=== PATIENT | male | born 1970 | race Caucasian/White ===

== ENCOUNTER 2019-05-31 07:33 | Emergency (ER) | payer OTHER, SELFPAY ==
--- NOTE | ~2019-05-31 | XR_ITS ---
EXAMINATION: XR chest 2V DATE: 05/31/2019 08:07 INDICATION: Cough and fever TECHNIQUE: PA and lateral views of the chest are obtained. COMPARISON: 03/05/2019, 12/22/2016 FINDINGS: The lungs are free of acute opacities. There is no pleural effusion or pneumothorax. The ca rdiomediastinal silhouette is normal. There is mild thoracic spondylosis. IMPRESSION: 1. No acute cardiopulmonary abnormality. Reviewed, dictated and finalized at location A.
[2019-05-31 07:41] VITALS: BP 128/84; PULSE 65; RESP 20; TEMP 36.8; O2SAT 99
--- NOTE | 2019-05-31 08:25 | ED.URI ---
HPI - URI/Sore Throat General Chief Complaint: Upper Respiratory Infection Stated Complaint: FEVER,COUGH BODY ACHES Time Seen by Provider: 05/31/19 07:42 Source: patient Mode of arrival: ambulatory Limitations: no limitations History of Present Illness HPI Narrative: 48 yo male who presents for evaluation of fever, cough x 2 days. Patient reports he started not feeling well 2 days ago. He reports runny nose, congestion, dry cough , fever and mild sob. Patient's states 1 week prior she was sick will similar symptoms and she states her hairdresser was diagnosed with flu prior to her sickness. Patient denies travelling out of the [facility]. He states he has just been in [place]. He denies contact with individuals who have traveled out of the country in the last 21 days. He denies contact with individual with known rivera or risk. MD elicited complaint: fever, cough, sore throat, rhinorrhea and nasal congestion Onset (ago): day(s) (2) Consistency: constant Treatments prior to arrival: ibuprofen (at 3 am) Related Data Allergies Allergy/AdvReac Type Severity Reaction Status Date / Time celecoxib Allergy Unknown Urticaria Verified 07/19/17 10:30 Review of Systems Review of Systems: All systems reviewed & are unremarkable except as noted in HPI and below Constitutional: Constitutional: Reports chills and Reports fever(s) ENT: Reports nasal congestion and Reports sore throat Cardiovascular: Cardiovascular: Denies chest pain Respiratory: Respiratory: Reports cough and Reports dyspnea Gastrointestinal: Gastrointestinal: Denies abdominal pain, Denies diarrhea, Denies nausea and Denies vomiting PMF Past Medical History Medical History Bilateral carpal tunnel syndrome Cubital tunnel syndrome, bilateral GERD (gastroesophageal reflux disease) Pneumonia Sleep apnea Umbilical hernia Surgical History Surgical History H/O umbilical hernia repair 2011 H/O vasectomy 2006 History of bilateral carpal tunnel release 2009, 2011 Hx of tonsillectomy As a child S/P cubital tunnel release Bilateral, 2012 and 2013 Status post trigger finger release Bilateral, 2013 and 2014 Social History Social History (Updated 03/06/19 @ 10:27 by Ana Ricks PA-C) Social History: Mr. Campuzano lives at home with his , Iona, his two daughters and a grandchild. He reports drinking about 1 drink of alcohol per week. Never smoker, denies other substance use. His PCP is Dr Omar Martin. He designates his , Iona Campuzano, as his surrogate decision-maker and is full code status. Smoking status: Never smoker Second hand tobacco smoke exposure: No Alcohol intake: current Drinks per week: 1 Substance use: never Gender identity (if verbalized by the patient): Male Spiritual care concerns: No Agree to blood products: Yes Exam Narrative: Exam Narrative: GENERAL: Well-appearing, well-nourished, and in no acute distress. HEAD: Normocephalic, atraumatic EYES: PERRLA and EOMI, conjunctiva clear without discharge EARS: TM's clear bilaterally without erythema or dullness NOSE: Nares clear, no rhinorrhea or epistaxis THROAT:Mucous membranes moist, Oropharynx normal without erythema, exudate, peritonsillar swelling or fluctuance NECK: Supple, without lymphadenopathy or mass RESPIRATORY: No respiratory distress, Airway patent, Respirations non-labored, Clear to auscultation without rales, rhonchi or wheeze HEART: Regular rate and rhythm. No murmur heard. Normal peripheral pulses. ABDOMEN: Soft, nontender, nondistended, normal active bowel sounds. No masses. No rebound or guarding, No organomegaly. EXTREMITIES: No edema, normal strength with full range of motion. SKIN: Warm, dry, normal color without rash NEURO: Alert and oriented x3. CN 2-12 grossly intact. No focal deficits. PSYCH: Normal mood an
[2019-05-31] MEDS: OSELTAMIVIR PHOSPHATE 75 MG CAPSULE PO (08:36)
== END 2019-05-31 08:40 | disposition home or self-care (01) ==
PROVIDERS: Emergency Provider General Practice; PCP Family Medicine
DX: J10.1 Influenza due to other identified influenza virus with other respiratory manifestations (principal); K21.9 Gastro-esophageal reflux disease without esophagitis; G47.30 Sleep apnea, unspecified
CPT/HCPCS: 71046; 87804; 99283; A9270

== ENCOUNTER 2019-07-09 13:11 | Outpatient (CLI) | payer OTHER, SELFPAY ==
[2019-07-11 12:09] LABS: Reference Lab Test Result Negative
== END 2019-07-09 13:12 | disposition home or self-care (01) ==
PROVIDERS: PCP Family Medicine; Visit Provider Family Medicine
DX: Z01.84 Encounter for antibody response examination (principal)
CPT/HCPCS: 36415; 86769

== ENCOUNTER 2019-10-23 03:38 | Emergency (ER) | payer OTHER, SELFPAY ==
[2019-10-23] VITALS (8 sets, daily range): BP systolic 102–115; BP diastolic 71–78; PULSE 65–88; RESP 12–19; TEMP 36.7; O2SAT 98–100
--- NOTE | 2019-10-23 03:45 | ECG_ITS ---
Measurements Intervals [place] Rate: 65 P: 31 NH: 181 QRS: 40 QRSD: 92 T: 48 QT: 412 QTc: 429 Interpretive Statements SINUS RHYTHM ST ELEVATION IN DIFFUSE LEADS- PROBABLY EARLY REPOLARIZATION BORDERLINE ECG Electronically Signed On 10-23-2019 7:01:19 CDT by Brian Serna D.O.
--- NOTE | 2019-10-23 03:46 | ED.SYNCOPE ---
HPI - Syncope General Chief Complaint: Syncope Stated Complaint: fall Time Seen by Provider: 10/23/19 03:45 History of Present Illness HPI narrative: He got up to use the restroom this evening. Then his heard a bang and came to find him unconscious on the bathroom floor. After waking up he was complaining of some facial pain and abdominal pain. EMS noted that his initial blood pressure was low. He recieved 250 ml NS prior to arrival. He has no complaints at this time. Related Data Home Medications Medication Instructions Recorded Confirmed albuterol sulfate [ProAir HFA] 1 - 2 inh INHALATION Q4-6H 10/23/19 zolpidem 10 mg PO HS PRN 10/23/19 Allergies Allergy/AdvReac Type Severity Reaction Status Date / Time celecoxib Allergy Unknown Urticaria Verified 10/23/19 03:50 Review of Systems Review of Systems: All systems reviewed & are unremarkable except as noted in HPI and below Constitutional: Constitutional: Denies fever(s) Eyes: Eyes: Denies change in vision Cardiovascular: Cardiovascular: Denies chest pain Respiratory: Respiratory: Denies dyspnea Gastrointestinal: Gastrointestinal: Denies abdominal pain Musculoskeletal: Musculoskeletal: Denies back pain Neurologic: Reports syncope [facility] Social History Social History Social History: Mr. Campuzano lives at home with his , Iona, his two daughters and a grandchild. He reports drinking about 1 drink of alcohol per week. Never smoker, denies other substance use. His PCP is Dr Omar Martin. He designates his , Iona Campuzano, as his surrogate decision-maker and is full code status. Smoking status: Never smoker Second hand tobacco smoke exposure: No Alcohol intake: current Drinks per week: 1 Substance use: never Gender identity (if verbalized by the patient): Male Spiritual care concerns: No Agree to blood products: Yes Exam Const: General: healthy appearing, no acute distress and alert Orientation/consciousness: patient oriented x3 HENMT: Head: normal to inspection Neck: Neck: normal visual inspection and no lymphadenopathy Chest: Chest palpation & inspection: no tenderness Resp: Effort & Inspection: normal respiratory effort Auscultation: clear to auscultation bilaterally, no rales, no rhonchi and no wheezes Cardio: Jugular venous distension: no JVD Rate: regular rate Rhythm: regular rhythm Heart sounds: no murmurs GI: Inspection: non-distended GI Palp: Yes Soft to palpation and No Tenderness to palpation present (GI) Skin: General skin exam: normal color Neuro: General: patient oriented x3 and moves all extremities Speech: normal speech Extrem: General: no edema Psych: Appearance: well kempt Affect: Anxious affect present Course Vital Signs Vital signs: Vital Signs Temperature 36.7 C 10/23/19 03:35 Pulse Rate 65 10/23/19 03:35 Respiratory Rate 12 10/23/19 03:35 Blood Pressure 113/78 10/23/19 03:35 Pulse Oximetry 99 10/23/19 03:35 Temperature 36.7 C 10/23/19 03:35 Pulse Rate 88 10/23/19 05:10 Respiratory Rate 17 10/23/19 05:10 Blood Pressure 115/73 10/23/19 05:10 Pulse Oximetry 98 10/23/19 05:00 MDM - Syncope Differential Diagnosis Differential diagnosis: Likely vasovagal syncope and dehydration Medical Records Attestation: I reviewed the patient's medical records. Lab Data Attestation: I reviewed the patient's lab results. Result diagrams: 10/23/19 03:55 10/23/19 03:55 Labs: Lab Results 10/23/19 10/23/19 10/23/19 Range/Units 03:55 03:55 03:55 WBC 8.6 (4.5-10.0) K/mm3 RBC 4.17 L (4.6-6.20) M/mm3 Hgb 12.5 L (14.0-18.0) g/dL Hct 35.7 L (42.0-52.0) % MCV 85.6 (80-100) fl MCH 30.0 (26-34) pg MCHC 35.0 (32-36) g/dl RDW 12.4 (11.5-14.5) % Plt Count 240 (150-375) k/mm3 MPV 9.1 (7.4-10.4) fl Immature Gran % (Auto) 0.5 (
[2019-10-23] MEDS: SODIUM CHLORIDE 0.9% IV 1,000 ML 999 ML IV CONT (04:06)
[2019-10-23 04:09] LABS: Basophils Absolute Auto 0.1 K/mm3 (0.0-0.1); Basophils Percent Auto 0.6 % (0.2-1.2); Eosinophils Absolute Auto 0.2 K/mm3 (0-0.3); Eosinophils Percent Auto 2.5 % (0-4.4); Hematocrit 35.7 % (42.0-52.0); Hemoglobin 12.5 g/dL (14.0-18.0); Immature Granulocyte Absolute 0.04 K/mm3 (0.00-0.031); Immature Granulocyte Percent A 0.5 % (0-0.5); Lymphocytes Absolute Auto 3.73 K/mm3 (0.9-3.2); Lymphocytes Percent Auto 43.2 % (18.3-44.2); Mean Corpuscular Volume 85.6 fl (80-100); Mean Platelet Volume 9.1 fl (7.4-10.4); Monocytes Absolute Auto 0.7 K/mm3 (0.1-0.6); Monocytes Percent Auto 7.9 % (2.6-8.5); Neutrophils Absolute Auto 3.9 K/mm3 (1.3-6.7); Neutrophils Percent Auto 45.3 % (45.5-73.1); Platelet Count Result 240 k/mm3 (150-375); Red Blood Count 4.17 M/mm3 (4.6-6.20); Red Cell Distribution Width 12.4 % (11.5-14.5); White Blood Count 8.6 K/mm3 (4.5-10.0)
[2019-10-23 04:14] LABS: Anion Gap 12.6 mmol/L (7-16); Blood Urea Nitrogen 14 mg/dL (9-20); Calcium 8.4 mg/dL (8.4-10.2); Carbon Dioxide 22 mmol/L (22-30); Chloride 105 mmol/L (98-107); Estimated CRCL calculation 83 ml/min; Estimated Glomerular Filt Rate > 60; Ethanol 13 mg/dL (<10); Glucose 116 mg/dL (75-110); Potassium 3.6 mmol/L (3.4-5.0); Sodium 136 mmol/L (137-145)
--- NOTE | 2019-10-23 04:47 | PC.NURSE ---
RBVO FROM EDP DR OREILLY TO RESUME THE REMAINING 725 OF EMS FLUIDS TO GRAVITY.
== END 2019-10-23 05:15 | disposition home or self-care (01) ==
PROVIDERS: Emergency Provider Emergency Medicine; PCP Family Medicine
DX: R55 Syncope and collapse (principal); R94.31 Abnormal electrocardiogram [ECG] [EKG]
CPT/HCPCS: 36415; 80048; 80307; 85025; 93005; 96361; 96374; 96375; 99283; 99284; J7030

== ENCOUNTER 2021-04-03 18:03 | Emergency (ER) | payer OTHER, SELFPAY ==
--- NOTE | ~2021-04-03 | XR_ITS ---
EXAMINATION: XR chest 2V EXAM DATE: 04/03/2021 18:25 INDICATION: chest tightness,nausea,body aches,dizziness,headache . TECHNIQUE: Frontal and lateral projections of the chest obtained and reviewed. Comparison is made to prior examination from 05/31/2019. FINDINGS: The lungs are clear. There are no pleural effusions. The cardiomediastinal silhouette is within normal limits. There is no pneumothorax suspected. The bones and soft tissues are unremarkab le. IMPRESSION: No acute cardiopulmonary findings. Reviewed, dictated and finalized at location G. PAN OPERATOR
[2021-04-03 18:06] VITALS: BP 149/95; PULSE 61; RESP 18; TEMP 36.4; O2SAT 100
--- NOTE | 2021-04-03 18:08 | ECG_ITS ---
Measurements Intervals [place] Rate: 65 P: 31 DE: 174 QRS: 23 QRSD: 94 T: 39 QT: 389 QTc: 405 Interpretive Statements SINUS RHYTHM NORMAL ECG Electronically Signed On 04-03-2021 20:21:40 SEE SUPERVISOR by Brian Serna D.O.
[2021-04-03 18:29] LABS: Basophils Absolute Auto 0.1 K/mm3 (0.0-0.1); Basophils Percent Auto 0.7 % (0.2-1.2); Eosinophils Absolute Auto 0.2 K/mm3 (0-0.3); Hematocrit 44.9 % (42.0-52.0); Hemoglobin 15.6 g/dL (14.0-18.0); Immature Granulocyte Absolute 0.03 K/mm3 (0.00-0.031); Immature Granulocyte Percent A 0.3 % (0-0.5); Lymphocytes Percent Auto 30.9 % (18.3-44.2); Mean Corpuscular HGB Conc 34.7 g/dl (32-36); Mean Corpuscular Hemoglobin 30.3 pg (26-34); Mean Corpuscular Volume 87.2 fl (80-100); Mean Platelet Volume 8.7 fl (7.4-10.4); Monocytes Absolute Auto 0.8 K/mm3 (0.1-0.6); Monocytes Percent Auto 8.4 % (2.6-8.5); Neutrophils Absolute Auto 5.2 K/mm3 (1.3-6.7); Neutrophils Percent Auto 57.7 % (45.5-73.1); Platelet Count Result 240 k/mm3 (150-375); Red Blood Count 5.15 M/mm3 (4.6-6.20); Red Cell Distribution Width 12.4 % (11.5-14.5); White Blood Count 9.1 K/mm3 (4.5-10.0)
[2021-04-03 18:39] LABS: Alanine Aminotransferase 45 U/L (4-50); Albumin Level 4.4 g/dL (3.5-5.1); Alkaline Phosphatase 90 U/L (38-126); Anion Gap 10 mmol/L (8-16); Aspartate Amino Transferase 31 U/L (17-59); Bilirubin,Total 0.5 mg/dL (0.2-1.3); Blood Urea Nitrogen 15 mg/dL (9-20); Carbon Dioxide 25 mmol/L (22-30); Chloride 103 mmol/L (98-107); Estimated CRCL calculation 75 ml/min; Estimated Glomerular Filt Rate > 60; Glucose 97 mg/dL (65-110); INR 0.9; Lipase 120 U/L (23-300); Potassium 3.7 mmol/L (3.4-5.0); Prothrombin Time 12.4 Seconds (11.1-14.7); Sodium 138 mmol/L (137-145)
[2021-04-03 18:40] LABS: Partial Thromboplastin Time 30.3 SECONDS (22.3-36.8)
[2021-04-03 18:50] LABS: Troponin I < 0.012 ng/mL (0.000-0.034)
--- NOTE | 2021-04-03 21:05 | ED.CHESTPAIN ---
HPI - Chest Pain General Chief Complaint: Chest Pain Stated Complaint: CHEST TIGHT, FEELS OFF' Time Seen by Provider: 04/03/21 19:53 History of Present Illness HPI narrative: Patient is a 50-year-old male who presents ER with chest pain. Ongoing for 2 days. Nagging and left-sided mid pectoralis region. No radiation. No difficulty breathing but mild discomfort with deep breath. Reports he felt weak. No fevers or chills or sweats. No productive cough. Reports use of pulse oximeter earlier in the week that showed his O2 sat was 93% however is currently 99 to 100% on room air. Patient has no lower extremity swelling or cramping or pain. No recent long distance travel or immobilization. Hemoptysis. Took an aspirin upon arrival due to chest pain is improved headache that he had that was mild as well as some discomfort in his chest. Pain has been intermittent. Related Data Home Medications Medication Instructions Recorded Confirmed albuterol sulfate [ProAir HFA] 1 - 2 inh INHALATION Q4-6H 10/23/19 02/07/21 zolpidem 10 mg PO HS PRN 10/23/19 02/07/21 Allergies Allergy/AdvReac Type Severity Reaction Status Date / Time celecoxib Allergy Unknown Urticaria Verified 02/07/21 10:50 Review of Systems Review of Systems: All systems reviewed & are unremarkable except as noted in HPI and below Constitutional: Constitutional: Denies chills, Denies fever(s) and Reports weakness ENT: Denies nasal congestion and Denies sore throat Cardiovascular: Cardiovascular: Reports chest pain, Denies rapid heart rate and Denies radiating jaw, neck or arm pain Respiratory: Respiratory: Denies cough, Reports dyspnea and Denies wheezing Gastrointestinal: Gastrointestinal: Denies abdominal pain, Denies nausea and Denies vomiting Neurologic: Reports headache(s), Denies focal weakness and Denies numbness [facility] Past Medical History Medical History Bilateral carpal tunnel syndrome Cubital tunnel syndrome, bilateral GERD (gastroesophageal reflux disease) Left shoulder pain Pneumonia Right shoulder pain Sleep apnea Umbilical hernia Surgical History Surgical History H/O umbilical hernia repair 2011 H/O vasectomy 2006 History of bilateral carpal tunnel release 2009, 2011 Hx of tonsillectomy As a child S/P cubital tunnel release Bilateral, 2012 and 2013 Status post trigger finger release Bilateral, 2014 and 2015 Family History Family History Father Hypertension Mother Family history of malignant neoplasm of breast in first degree relative Other Cerebrovascular accident Family history of arthritis Social History Social History Social History: Mr. Campuzano lives at home with his , Iona, his two daughters and a grandchild. He reports drinking about 1 drink of alcohol per week. Never smoker, denies other substance use. His PCP is Dr Omar Martin. He designates his , Iona Campuzano, as his surrogate decision-maker and is full code status. Second hand tobacco smoke exposure: No Alcohol intake: current Drinks per week: 1 Substance use: never Gender identity (if verbalized by the patient): Male Spiritual care concerns: No Agree to blood products: Yes Exam Narrative: GENERAL: Well-appearing, well-nourished, and in no acute distress. HEAD: Normocephalic, atraumatic. ENT: Mucous membranes moist. CHEST: Clear to auscultation. No respiratory distress. No reproducible chest pain. HEART: Regular rate and rhythm. Normal peripheral pulses. ABDOMEN: Soft, nontender, nondistended. EXTREMITIES: Normal range of motion. No edema. SKIN: Warm, dry, no rash. NEURO: Alert and oriented x3. PSYCH: Normal mood and affect. Course Course Emergency Course: D-dimer negative. Discharged home. Ashley
[2021-04-03 23:00] LABS: D Dimer 0.36 ug/mL (<0.48)
[2021-04-03 23:08] LABS: Troponin I < 0.012 ng/mL (0.000-0.034)
[2021-04-03] MEDS: ACETAMINOPHEN 500 MG TABLET 1000 MG PO (23:45)
== END 2021-04-03 23:48 | disposition home or self-care (01) ==
PROVIDERS: Emergency Medicine; Emergency Provider Emergency Medicine; PCP Family Medicine
DX: R07.89 Other chest pain (principal); K21.9 Gastro-esophageal reflux disease without esophagitis; G47.30 Sleep apnea, unspecified; Z87.01 Personal history of pneumonia (recurrent)
CPT/HCPCS: 36415; 71046; 80053; 83690; 84484; 85025; 85380; 85610; 85730; 93005; 99284; A9270

== ENCOUNTER 2021-11-13 15:45 | Emergency (ER) | payer OTHER, SELFPAY ==
[2021-11-13 15:53] VITALS: BP 136/88; PULSE 62; RESP 16; TEMP 36.5; O2SAT 99
[2021-11-13] MEDS: methylPREDNISolone SOD SUCC 125 MG VIAL IM (16:09)
--- NOTE | 2021-11-13 16:36 | ED.GENADULT ---
HPI - General Adult General Chief complaint: Wound/Laceration Stated complaint: WASP STING Source: patient Mode of arrival: ambulatory Limitations: no limitations History of Present Illness HPI narrative: Patient presents for evaluation of a wasp sting to the left side of his chest that occurred yesterday. He took several pictures and has noted some redness in the area. Denies any purulence from the affected area. Denies any difficulty breathing or swallowing. Denies pruritus. He has some minimal pain in the affected area. He states he feels jittery. He has not tried any therapies to assist with his symptoms. His encouraged him to come and be evaluated today. No additional complaints or concerns. Related Data Home Medications Medication Instructions Recorded Confirmed No Home Medications 11/13/21 11/13/21 Allergies Allergy/AdvReac Type Severity Reaction Status Date / Time celecoxib Allergy Unknown Urticaria Verified 11/13/21 15:51 Review of Systems Review of Systems: CONSTITUTIONAL: Denies fever, chills, or sweats. EYES: Denies visual changes, redness, or discharge. ENT: Denies rhinorrhea, congestion, sore throat, or otalgia. CARDIOVASCULAR: Denies chest pain, palpitations, or edema. RESPIRATORY: Denies cough or dyspnea. GASTROINTESTINAL: Denies abdominal pain, nausea, vomiting, or diarrhea. GENITOURINARY: Denies dysuria or hematuria. SKIN: Reports wasp sting with redness to the left side of his chest MUSCULOSKELETAL: Denies back pain, joint pain, or myalgia. NEUROLOGIC: Denies headache, numbness, dizziness, or weakness. PSYCHIATRIC: Denies anxiety or depression. [facility] Past Medical History Medical History Bilateral carpal tunnel syndrome Calcific tendinitis Cubital tunnel syndrome, bilateral GERD (gastroesophageal reflux disease) Left shoulder pain Pneumonia Right shoulder pain Sleep apnea Umbilical hernia Surgical History Surgical History H/O umbilical hernia repair 2011 H/O vasectomy 2007 History of bilateral carpal tunnel release 2009, 2011 Hx of tonsillectomy As a child S/P cubital tunnel release Bilateral, 2012 and 2013 Status post trigger finger release Bilateral, 2014 and 2015 Family History Family History Father Hypertension Mother Family history of malignant neoplasm of breast in first degree relative Other Cerebrovascular accident Family history of arthritis Social History Social History Social History: Mr. Campuzano lives at home with his , Iona, his two daughters and a grandchild. He reports drinking about 1 drink of alcohol per week. Never smoker, denies other substance use. His PCP is Dr Omar Martin. He designates his , Iona Campuzano, as his surrogate decision-maker and is full code status. Second hand tobacco smoke exposure: No Alcohol intake: current Drinks per week: 1 Substance use: never Gender identity (if verbalized by the patient): Male Spiritual care concerns: No Agree to blood products: Yes Exam Narrative: GENERAL: Well-appearing, well-nourished, and in no acute distress. HEAD: Normocephalic, atraumatic. EYES: PERRLA and EOMI. ENT: Nares clear, no rhinorrhea or epistaxis. Mucous membranes moist. Oropharynx without tonsillar hypertrophy exudate or other lesions. Bilateral TMs pearly escobar nonbulging NECK: Supple. No adenopathy or masses. No carotid bruits or JVD CHEST: Clear to auscultation. No respiratory distress. No wheezes rales or rhonchi HEART: Regular rate and rhythm. No murmur heard. Normal peripheral pulses. ABDOMEN: Soft, nontender, nondistended, normal active bowel sounds. EXTREMITIES: Normal range of motion. No edema. SKIN: There is a 2mm scabbed lesion to left lateral chest wa
== END 2021-11-13 16:25 | disposition home or self-care (01) ==
PROVIDERS: Emergency Provider Nurse Practitioner; PCP Family Medicine
DX: T63.461A Toxic effect of venom of wasps, accidental (unintentional), initial encounter (principal); K21.9 Gastro-esophageal reflux disease without esophagitis; G47.30 Sleep apnea, unspecified; Z98.84 Bariatric surgery status
CPT/HCPCS: 96372; 99213; G0463; J2930

== ENCOUNTER 2022-08-11 14:42 | Emergency (ER) | payer OTHER, SELFPAY ==
[2022-08-11 14:49] VITALS: BP 154/89; PULSE 64; RESP 16; TEMP 36.3; O2SAT 99
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
== END 2022-08-11 15:11 | disposition home or self-care (01) ==
PROVIDERS: Emergency Provider Nurse Practitioner Family; PCP Family Medicine
DX: T23.161A Burn of first degree of back of right hand, initial encounter (principal); X08.8XXA Exposure to other specified smoke, fire and flames, initial encounter; K21.9 Gastro-esophageal reflux disease without esophagitis; Z98.52 Vasectomy status
CPT/HCPCS: 99212; G0463

== ENCOUNTER 2022-11-12 09:10 | Emergency (ER) | payer OTHER, SELFPAY ==
--- NOTE | ~2022-11-12 | XR_ITS ---
XR chest 2V DATE: 11/12/2022 09:51 INDICATION: Cough TECHNIQUE: PA and lateral views COMPARISON: 04/03/2021 PA and lateral chest FINDINGS: Normal heart size. No hilar or mediastinal enlargement. No pulmonary infiltrate or consolidation, pleural effusion or pulmonary vascular congestion or pneumo thorax is detected. IMPRESSION: No active cardiopulmonary disease Reviewed, dictated and finalized at location A.
[2022-11-12 09:27] VITALS: BP 125/91; PULSE 67; RESP 16; TEMP 36.1; O2SAT 100
--- NOTE | 2022-11-12 09:29 | ED.URI ---
HPI - URI/Sore Throat General Chief Complaint: Upper Respiratory Infection Stated Complaint: COUGH/CHEST PRESSURE Time Seen by Provider: 11/12/22 09:29 Source: patient Mode of arrival: ambulatory Limitations: no limitations History of Present Illness HPI Narrative: 52 yo M presents with c/o cough, chest congestion, PND, tickle in throat for 2 days. Afebrile. Denies CP and SOB. States this how is started in 2019 when i had pneumonia. would like to get an antibiotic to calm this down . Denies N/V/D. no fatigue, bodyaches or chills. All systems reviewed and negative except as noted above. Related Data Home Medications Medication Instructions Recorded Confirmed phentermine 37.5 mg tablet 37.5 mg PO DAILY 11/12/22 11/12/22 Allergies Allergy/AdvReac Type Severity Reaction Status Date / Time celecoxib Allergy Unknown Urticaria Verified 11/12/22 09:20 Review of Systems Review of Systems: CONSTITUTIONAL: Denies fever, chills, or sweats. EYES: Denies visual changes, redness, or discharge. ENT: Denies rhinorrhea, congestion, sore throat, or otalgia. CARDIOVASCULAR: Denies chest pain, palpitations, or edema. RESPIRATORY: Reports cough. Denies dyspnea. GASTROINTESTINAL: Denies abdominal pain, nausea, vomiting, or diarrhea. GENITOURINARY: Denies dysuria or hematuria. SKIN: Denies rash or itching. MUSCULOSKELETAL: Denies back pain, joint pain, or myalgia. NEUROLOGIC: Denies headache, numbness, or weakness. PSYCHIATRIC: Denies anxiety or depression. All other systems reviewed are negative, except as documented in HPI. [facility] Past Medical History Medical History Bilateral carpal tunnel syndrome Calcific tendinitis Cubital tunnel syndrome, bilateral GERD (gastroesophageal reflux disease) Left shoulder pain Pneumonia Right shoulder pain Sleep apnea Umbilical hernia Surgical History Surgical History H/O umbilical hernia repair 2011 H/O vasectomy 2007 History of bilateral carpal tunnel release 2009, 2011 Hx of tonsillectomy As a child S/P cubital tunnel release Bilateral, 2011 and 2013 Status post trigger finger release Bilateral, 2013 and 2015 Family History Family History Father Hypertension Mother Family history of malignant neoplasm of breast in first degree relative Other Cerebrovascular accident Family history of arthritis Social History Social History Social History: Mr. Campuzano lives at home with his , Iona, his two daughters and a grandchild. He reports drinking about 1 drink of alcohol per week. Never smoker, denies other substance use. His PCP is Dr Omar Martin. He designates his , Iona Campuzano, as his surrogate decision-maker and is full code status. Second hand tobacco smoke exposure: No Alcohol intake: current Drinks per week: 1 Substance use: never Gender identity (if verbalized by the patient): Male Spiritual care concerns: No Agree to blood products: Yes Comments At time of signature, agree with nursing past medical, surgical, social and family history. There is no relevant family history pertinent to the presenting complaint. Exam Narrative: GENERAL: This is a well-nourished, well-developed patient, in no apparent distress. HEAD: normocephalic, atraumatic. EYES: PERRL. Sclera clear/white. Vision is grossly intact. EARS: External ears normal, auditory canals clear and without drainage, TMs normal without perforation. Hearing grossly intact. NOSE: External nose normal with no obvious nasal discharge, nares without redness, no rhinorrhea. THROAT: Mucous membranes moist, posterior pharynx clear. NECK: Neck supple, non-tender without lymphadenopathy, masses or thyromegaly. CARDIOVASCULAR: Regular rate and rhythm without m
== END 2022-11-12 10:14 | disposition home or self-care (01) ==
PROVIDERS: Emergency Provider Nurse Practitioner Family; PCP Family Medicine
DX: J06.9 Acute upper respiratory infection, unspecified (principal); Z20.822 Contact with and (suspected) exposure to COVID-19; K21.9 Gastro-esophageal reflux disease without esophagitis
CPT/HCPCS: 71046; 87426; 99213; C9803; G0463

== ENCOUNTER 2023-04-25 07:42 | Emergency (ER) | payer OTHER, SELFPAY ==
--- NOTE | ~2023-04-25 | CT_ITS ---
EXAMINATION: CT brain wo con DATE: 04/25/2023 11:54 INDICATION: Visual disturbance TECHNIQUE: Computed tomography (CT) of the head was performed without intravenous contrast. Sagittal and coronal reconstructions were performed. The mA was adjusted according to patient size. Iterative reconstruction technique was employed. The dose-length product was 756.67 mGy-cm. COMPARISON: None FINDINGS: No acute intracranial hemorrhage, acute infarction or abnormal extra axial fluid collection. Ventricl es are normal and symmetric. No mass/mass effect. The orbits, paranasal sinuses and mastoid air cells are normal. IMPRESSION: 1. Normal head CT. Reviewed, dictated and finalized at location A. ESSING MANAGER IMPRESSION: 1. Normal head CT.
[2023-04-25 07:48] VITALS: BP 142/90; PULSE 75; RESP 14; TEMP 36.6; O2SAT 99
--- NOTE | 2023-04-25 09:33 | ED.GENADULT ---
HPI - General Adult General Chief complaint: Unspecified Stated complaint: int. visual changes since 0700 Time Seen by Provider: 04/25/23 08:14 Source: patient Limitations: no limitations History of Present Illness HPI narrative: Patient is a 52-year-old male presents to the emergency department complaining of visual disturbance. Patient states around 7:00 a.m. he was driving to work when he noticed the lateral aspect of his right eye in the periphery seemed picks elated, notes that it is since resolved, did return a couple times for few seconds but is currently absent. Patient denies any history is the past. Patient admits to having an eye exam with dilation on Sunday and denies having any issues. Patient is to getting Lasix eye surgery 20 years ago. Patient denies headache, eye pain, eye redness, recent illness, new or change medications, numbness, weakness. Related Data Home Medications Medication Instructions Recorded Confirmed phentermine 37.5 mg tablet 37.5 mg PO DAILY 11/12/22 04/25/23 Allergies Allergy/AdvReac Type Severity Reaction Status Date / Time celecoxib Allergy Unknown Urticaria Verified 04/25/23 07:57 Review of Systems Review of Systems: A 10 system review of systems was completed on the patient and is negative except for what is stated in the HPI. Nursing and ancillary documentation was reviewed. [facility]LY [facility] Past Medical History Medical History Bilateral carpal tunnel syndrome Calcific tendinitis Cubital tunnel syndrome, bilateral GERD (gastroesophageal reflux disease) Left shoulder pain Pneumonia Right shoulder pain Sleep apnea Umbilical hernia Surgical History Surgical History H/O umbilical hernia repair 2011 H/O vasectomy 2007 History of bilateral carpal tunnel release 2009, 2011 Hx of tonsillectomy As a child S/P cubital tunnel release Bilateral, 2012 and 2013 Status post trigger finger release Bilateral, 2014 and 2015 Family History Family History Father Hypertension Mother Family history of malignant neoplasm of breast in first degree relative Other Cerebrovascular accident Family history of arthritis Social History Social History Social History: Mr. Campuzano lives at home with his , Iona, his two daughters and a grandchild. He reports drinking about 1 drink of alcohol per week. Never smoker, denies other substance use. His PCP is Dr Omar Martin. He designates his , Iona Campuzano, as his surrogate decision-maker and is full code status. Second hand tobacco smoke exposure: No Alcohol intake: current Drinks per week: 1 Substance use: never Gender identity (if verbalized by the patient): Male Spiritual care concerns: No Agree to blood products: Yes Comments At time of signature, I have reviewed and agree with nursing past medical, surgical, social and family history unless otherwise noted. Please see the nursing chart for further information. There is no relevant family history pertinent to the presenting complaint. Exam Narrative: CONST: No acute distress. Well nourished. HENMT: Head is normocephalic and atraumatic. Moist mucous membranes. No posterior oropharynx erythema. EYES: No conjunctival icterus, injection, or pallor. PERRLA. extraocular motions intact. Visual parr intact to confrontation. Visual acuity in the left eye is 20/25, visual acuity in the right eye is 20/40. Left eye pressure is 13 mmHg and right eye pressure is 13 mmHg. NECK: No meningeal signs. RESP: Able to speak in full sentences. Normal respiratory effort. CTAB. CARDIO: Regular rate. Regular rhythm. 2+ DP and radial pulses bilaterally. GI: Nondistended. SKIN: No rashes or lesions noted on exposed skin. NEURO: Maxi
[2023-04-25 11:21] VITALS: BP 134/95; PULSE 72; RESP 18; O2SAT 100
== END 2023-04-25 12:22 | disposition home or self-care (01) ==
PROVIDERS: Emergency Provider Student in an Organized Health Care Education/Training Program; PCP Family Medicine
DX: H53.9 Unspecified visual disturbance (principal)
CPT/HCPCS: 70450; 99284

== ENCOUNTER 2023-06-12 10:21 | Emergency (ER) | payer OTHER, SELFPAY ==
[2023-06-12 10:26] VITALS: BP 121/87; PULSE 67; RESP 16; TEMP 36.4; O2SAT 100
[2023-06-12 10:33] VITALS: BP 121/87; PULSE 67; RESP 16; TEMP 36.4; O2SAT 100
--- NOTE | 2023-06-12 10:58 | ED.EYEPROB ---
HPI - Eye Problem General Chief complaint: Eye Problems Stated complaint: Eye Pain Source: patient Mode of arrival: ambulatory Limitations: no limitations History of Present Illness HPI Narrative: 52-year-old male presented for complaint of right inner eye skin irritation for about 2 weeks. states it started after he walked into a tree branch. Since then he has had some itchy skin, dryness and scaling to the site. Denies vision changes, eye pain, FB sensation, or discharge. He applied some lotion to the site last night which helped. Pt was diagnosed with ocular migraines 6 weeks ago. MD chief complaint: eye pain Related Data Home Medications Medication Instructions Recorded Confirmed fexofenadine 180 mg tablet 180 mg PO DAILY 06/12/23 06/12/23 Allergies Allergy/AdvReac Type Severity Reaction Status Date / Time celecoxib Allergy Unknown Urticaria Verified 06/12/23 10:32 Review of Systems Review of Systems: CONSTITUTIONAL: Denies body aches, fever, chills EYES:Endorses redness and itching to right eye; denies pain, FB sensation, photophobia, visual changes ENT: Denies rhinorrhea, congestion, sore throat, or otalgia. CARDIOVASCULAR: Denies chest pain, palpitations RESPIRATORY: Denies cough or dyspnea. SKIN: Denies rash or wounds. MUSCULOSKELETAL: Denies back pain, joint pain, or myalgia. NEUROLOGIC: Denies headache, numbness, tingling, or weakness. All systems reviewed & are unremarkable except as noted in HPI and below PMFSH Past Medical History Medical History Bilateral carpal tunnel syndrome Calcific tendinitis Cubital tunnel syndrome, bilateral GERD (gastroesophageal reflux disease) Left shoulder pain Pneumonia Right shoulder pain Sleep apnea Umbilical hernia Surgical History Surgical History H/O umbilical hernia repair 2011 H/O vasectomy 2007 History of bilateral carpal tunnel release 2009, 2011 Hx of tonsillectomy As a child S/P cubital tunnel release Bilateral, 2012 and 2013 Status post trigger finger release Bilateral, 2013 and 2014 Family History Family History Father Hypertension Mother Family history of malignant neoplasm of breast in first degree relative Other Cerebrovascular accident Family history of arthritis Social History Social History Social History: Mr. Campuzano lives at home with his , Iona, his two daughters and a grandchild. He reports drinking about 1 drink of alcohol per week. Never smoker, denies other substance use. His PCP is Dr Omar Martin. He designates his , Iona Campuzano, as his surrogate decision-maker and is full code status. Second hand tobacco smoke exposure: No Alcohol intake: current Drinks per week: 1 Substance use: never Gender identity (if verbalized by the patient): Male Spiritual care concerns: No Agree to blood products: Yes Comments At time of signature, I have reviewed and agree with nursing past medical, surgical, social and family history unless otherwise noted. Please see nursing chart for further information. There is no relevant family history pertinent to the presenting complaint Exam Narrative: GENERAL: Well-appearing HEAD: Normocephalic, atraumatic. EYES: Minimal upper right eye lid swelling, redness and dry skin to the medial aspect approx 0.5cm slightly raised. PERRLA, EOMI. Lid eversion shows no FB. No conjunctival injection or drainage. ENT: Mucous membranes pink and moist. No rhinorrhea. TMs normal bilaterally. Throat normal. Uvula midline. CHEST: Clear to auscultation. HEART: Regular rate and rhythm. SKIN: Warm, dry, Normal skin turgor. NEURO: No focal deficits. Alert and oriented x3 PSYCH: Normal affect. Course Course Emergency Course: Patient is aware of
== END 2023-06-12 11:04 | disposition home or self-care (01) ==
PROVIDERS: Emergency Provider Nurse Practitioner Family; PCP Family Medicine
DX: H01.9 Unspecified inflammation of eyelid (principal); K21.9 Gastro-esophageal reflux disease without esophagitis; Z98.52 Vasectomy status
CPT/HCPCS: 99213; G0463

== ENCOUNTER 2023-07-20 11:29 | Outpatient (CLI) | payer OTHER, SELFPAY ==
[2023-07-20 20:13] LABS: Basophils Absolute Auto 0.1 K/mm3 (0.0-0.1); Basophils Percent Auto 0.9 % (0.2-1.2); Eosinophils Absolute Auto 0.2 K/mm3 (0-0.3); Eosinophils Percent Auto 1.9 % (0-4.4); Hemoglobin 16.2 g/dL (14.0-18.0); Immature Granulocyte Absolute 0.04 K/mm3 (0.00-0.031); Immature Granulocyte Percent A 0.5 % (0-0.5); Lymphocytes Absolute Auto 2.34 K/mm3 (0.9-3.2); Lymphocytes Percent Auto 29.5 % (18.3-44.2); Mean Corpuscular HGB Conc 33.1 g/dl (32-36); Mean Corpuscular Hemoglobin 29.2 pg (26-34); Mean Corpuscular Volume 88.3 fl (80-100); Mean Platelet Volume 9.4 fl (7.4-10.4); Monocytes Absolute Auto 0.6 K/mm3 (0.1-0.6); Monocytes Percent Auto 7.4 % (2.6-8.5); Neutrophils Absolute Auto 4.7 K/mm3 (1.3-6.7); Neutrophils Percent Auto 59.8 % (45.5-73.1); Platelet Count Result 259 k/mm3 (150-375); Red Blood Count 5.55 M/mm3 (4.6-6.20); Red Cell Distribution Width 12.1 % (11.5-14.5); White Blood Count 7.9 K/mm3 (4.5-10.0)
[2023-07-20 20:32] LABS: Alanine Aminotransferase 43 U/L (6-50); Albumin Level 4.8 g/dL (3.5-5.1); Alkaline Phosphatase 81 U/L (38-126); Anion Gap 8 mmol/L (4-12); Aspartate Amino Transferase 48 U/L (17-59); Bilirubin,Total 0.6 mg/dL (0.2-1.3); Blood Urea Nitrogen 15 mg/dL (9-20); Calcium 9.5 mg/dL (8.4-10.2); Carbon Dioxide 25 mmol/L (22-30); Chloride 106 mmol/L (98-107); Cholesterol 242 mg/dL (0-200); Estimated Glomerular Filt Rate > 60; Glucose 97 mg/dL (65-110); HDL Direct 32 mg/dL; Potassium 4.5 mmol/L (3.4-5.0); Sodium 139 mmol/L (137-145); Triglycerides 293 mg/dL (<150)
[2023-07-20 20:48] LABS: LDL Cholesterol Direct 153 mg/dL
[2023-07-20 20:59] LABS: Vitamin D 25 Hydroxy 36.1 ng/mL
[2023-07-20 21:08] LABS: Prostate Specific Antigen 1.2 ng/mL (< OR = 4.0)
[2023-07-20 21:26] LABS: Hemoglobin A1C 5.4 % (<5.7)
[2023-07-24 14:38] LABS: Testosterone Free 52.9 pg/mL (35.0-155.0); Testosterone Total 254 ng/dL (250-1100)
== END 2023-07-20 11:30 | disposition home or self-care (01) ==
LOC: ANHGOSHLAB 11:30
PROVIDERS: PCP Family Medicine; Visit Provider Nurse Practitioner Family
DX: Z00.00 Encounter for general adult medical examination without abnormal findings (principal); F52.4 Premature ejaculation; G43.109 Migraine with aura, not intractable, without status migrainosus; N52.9 Male erectile dysfunction, unspecified; R41.3 Other amnesia; E53.8 Deficiency of other specified B group vitamins; E55.9 Vitamin D deficiency, unspecified; E78.5 Hyperlipidemia, unspecified; R73.03 Prediabetes; Z12.5 Encounter for screening for malignant neoplasm of prostate; E03.9 Hypothyroidism, unspecified
CPT/HCPCS: 36415; 80053; 80061; 82306; 82607; 83036; 84153; 84402; 84403; 84443; 85025; G0103

== ENCOUNTER 2023-08-03 09:15 | Outpatient (CLI) | payer OTHER, SELFPAY ==
--- NOTE | ~2023-08-03 | CT_ITS ---
Non-contrast Head CT History: Amnesia COMPARISON: 04/25/2023 Technique: Axial non-contrast imaging of the brain was performed. Dose reduction technique was used on this scan by utilizing automated exposure control and iterative reconstruction technique. The dose -length product (DLP) was 681.00 mGy-cm. Findings: There is no evidence of intracranial hemorrhage, mass lesion, or acute infarct. Brain par enchyma appears normal. The ventricles and subarachnoid spaces are normal in size. The calvarium ap pears normal. The visualized paranasal sinuses and mastoid air cells are clear. Impression: No significant abnormality seen. Reviewed, dictated and finalized at location . Impression: No significant abnormality seen.
== END 2023-08-03 09:16 | disposition home or self-care (01) ==
PROVIDERS: PCP Nurse Practitioner Family; Visit Provider Nurse Practitioner Family
DX: G43.109 Migraine with aura, not intractable, without status migrainosus (principal); R41.3 Other amnesia
CPT/HCPCS: 70450

== ENCOUNTER 2023-09-10 15:58 | Emergency (ER) | payer OTHER, SELFPAY ==
--- NOTE | ~2023-09-10 | XR_ITS ---
EXAMINATION:XR cervical spine 4-5V DATE: 09/10/2023 16:23 INDICATION: Neck pain post fall with head injury TECHNIQUE: AP, lateral, lateral swimmers and odontoid views of the cervical spine are provided. COMPARISON: None FINDINGS: 1 mm anterolisthesis C4 on C5 and 1 mm retrolisthesis C5 on C6. Odontoid is intact. Mild osteoarthrit is at the atlantoaxial articulation. Vertebral body heights are normal. Severe disc height loss with moderate to severe uncovertebral osteoarthritis at C5-C6 and C6-C7. Multilevel mild cervical facet os teoarthritis. Prevertebral soft tissues are normal. Visualized apices of lungs are clear. IMPRESSION: 1. Severe lower cervical spondylosis. Reviewed, dictated and finalized at location B.
[2023-09-10 16:05] VITALS: BP 138/96; PULSE 71; RESP 17; TEMP 36.2; O2SAT 98
--- NOTE | 2023-09-10 16:15 | ED.FALL ---
HPI - Fall General Chief Complaint: Fall Stated Complaint: FALL/HEAD/SHOULDER/SIDE PAIN Source: patient, RN notes reviewed and old records reviewed Mode of arrival: ambulatory Limitations: no limitations History of Present Illness HPI Narrative: Patient presents to [facility] complaining of generalized pain to neck and torso after falling out of desk chair 3 days ago and hitting wall. Denies loss of consciousness. He reports pain is worst in his neck, worse with range of motion. He denies any numbness or tingling. He is observed ambulating with a steady gait, no obvious difficulty. He denies other injury and trauma. He denies all other complaints today. He has not been taking anything for his symptoms. Related Data Allergies Allergy/AdvReac Type Severity Reaction Status Date / Time celecoxib Allergy Unknown Urticaria Verified 09/10/23 16:11 Review of Systems Review of Systems: All systems reviewed & are unremarkable except as noted in HPI and below Constitutional: Constitutional: Reports no additional constitutional complaints ENT: Reports system reviewed and no additional complaints, except as documented Cardiovascular: Cardiovascular: Reports no additional cardiovascular complaints Respiratory: Respiratory: Reports no additional respiratory complaints Gastrointestinal: Gastrointestinal: Reports no additional gastrointestinal complaints Musculoskeletal: Musculoskeletal: Denies deformity, Reports neck pain, Denies numbness, Reports stiffness and Denies tingling PMFSH Past Medical History Medical History Bilateral carpal tunnel syndrome Calcific tendinitis Cubital tunnel syndrome, bilateral Encounter to establish care with new doctor Erectile disorder GERD (gastroesophageal reflux disease) Hay fever Increased severity of headaches Insomnia Left shoulder pain Memory loss Ocular migraine Pneumonia Right shoulder pain Sleep apnea Umbilical hernia Urinary incontinence, post-void dribbling Weight gain Surgical History Surgical History H/O umbilical hernia repair 2011 H/O vasectomy 2007 History of bilateral carpal tunnel release 2009, 2011 Hx of tonsillectomy As a child S/P cubital tunnel release Bilateral, 2012 and 2013 Status post trigger finger release Bilateral, 2014 and 2015 Family History Family History Father Hypertension Mother Family history of malignant neoplasm of breast in first degree relative Other Cerebrovascular accident Family history of arthritis Social History Social History Social History: Mr. Campuzano lives at home with his , Iona, his two daughters and a grandchild. He reports drinking about 1 drink of alcohol per week. Never smoker, denies other substance use. His PCP is Dr Omar Martin. He designates his , Iona Campuzano, as his surrogate decision-maker and is full code status. Smoking status: Never smoker Second hand tobacco smoke exposure: No Alcohol intake: current Drinks per week: 1 Substance use: never Substance use type: does not use Do You Feel Safe in your Home?: Yes Lack of Transportation: No Lack of Food: Never True Current Housing: I Have Housing Concerned About Future Housing: No Difficulty Paying Gas/Electric Bills: No Difficulty Paying for Meds: No Currently Unemployed: No Education: Bachelor's Degree Difficulty w/ Childcare or Family Care: No Living arrangements: with family Occupation/Education: occupation Gender identity (if verbalized by the patient): Male Sexual Orientation (if Verbalized by the Patient): Straight or Heterosexual Spiritual care concerns: No Agree to blood products: Yes Comments At the time of my signature, I reviewed and agree with the nursing past medical, s
== END 2023-09-10 16:50 | disposition home or self-care (01) ==
PROVIDERS: Emergency Provider Nurse Practitioner Family; PCP Nurse Practitioner Family
DX: M47.812 Spondylosis without myelopathy or radiculopathy, cervical region (principal); K21.9 Gastro-esophageal reflux disease without esophagitis
CPT/HCPCS: 72050; 99213; G0463

== ENCOUNTER 2023-09-14 14:15 | Emergency (ER) | payer OTHER, SELFPAY ==
--- NOTE | ~2023-09-14 | XR_ITS ---
EXAMINATION: XR chest 2V DATE: 09/14/2023 14:41 INDICATION: Cough. TECHNIQUE: Frontal and lateral views of the chest were obtained. COMPARISON: Chest 2 views 11/12/2022 FINDINGS: There is no pneumonia, pleural effusion, or pneumothorax. The heart size is normal. IMPRESSION: 1. No acute cardiopulmonary disease. Reviewed, dictated and finalized at location A.
[2023-09-14 14:24] VITALS: BP 129/84; PULSE 68; RESP 16; TEMP 37.1; O2SAT 98
[2023-09-14 14:30] VITALS: O2SAT 99
--- NOTE | 2023-09-14 14:45 | ED.URI ---
HPI - URI/Sore Throat General Chief Complaint: Upper Respiratory Infection Stated Complaint: Shortness of Breath Source: patient Mode of arrival: ambulatory Limitations: no limitations History of Present Illness HPI Narrative: 52-year-old male presented for complaint of cough x3 weeks. Endorses occasional shortness of breath and wheezing in the night. Pt tested positive for Covid 08/29, the day after he returned from [place]. took a dose of Nyquil last night. Denies chest pain, palpitations, nausea, vomiting, diarrhea, fever or lethargy. History of pneumonia in 2019. Related Data Allergies Allergy/AdvReac Type Severity Reaction Status Date / Time celecoxib Allergy Unknown Urticaria Verified 09/14/23 14:41 Review of Systems Review of Systems: CONSTITUTIONAL: Denies body aches, fever, chills, or sweats. EYES: Denies visual changes, redness, or discharge. ENT: Denies rhinorrhea, congestion, sore throat, or otalgia. CARDIOVASCULAR: Denies chest pain, palpitations, or edema. RESPIRATORY: Reports cough, sob, wheezing. GASTROINTESTINAL: Denies abdominal pain, nausea, vomiting, or diarrhea. SKIN: Denies rash, itching, or wounds. NEUROLOGIC: Denies headache, numbness, tingling, or weakness. All systems reviewed & are unremarkable except as noted in HPI and below PMFSH Past Medical History Medical History Bilateral carpal tunnel syndrome Calcific tendinitis Cubital tunnel syndrome, bilateral Encounter to establish care with new doctor Erectile disorder GERD (gastroesophageal reflux disease) Hay fever Increased severity of headaches Insomnia Left shoulder pain Memory loss Ocular migraine Pneumonia Right shoulder pain Sleep apnea Umbilical hernia Urinary incontinence, post-void dribbling Weight gain Surgical History Surgical History H/O umbilical hernia repair 2011 H/O vasectomy 2007 History of bilateral carpal tunnel release 2009, 2011 Hx of tonsillectomy As a child S/P cubital tunnel release Bilateral, 2012 and 2013 Status post trigger finger release Bilateral, 2013 and 2014 Family History Family History Father Hypertension Mother Family history of malignant neoplasm of breast in first degree relative Other Cerebrovascular accident Family history of arthritis Social History Social History Social History: Mr. Campuzano lives at home with his , Iona, his two daughters and a grandchild. He reports drinking about 1 drink of alcohol per week. Never smoker, denies other substance use. His PCP is Dr Omar Martin. He designates his , Iona Campuzano, as his surrogate decision-maker and is full code status. Smoking status: Never smoker Second hand tobacco smoke exposure: No Alcohol intake: current Drinks per week: 1 Substance use: never Substance use type: does not use Do You Feel Safe in your Home?: Yes Lack of Transportation: No Lack of Food: Never True Current Housing: I Have Housing Concerned About Future Housing: No Difficulty Paying Gas/Electric Bills: No Difficulty Paying for Meds: No Currently Unemployed: No Education: Bachelor's Degree Difficulty w/ Childcare or Family Care: No Living arrangements: with family Occupation/Education: occupation Gender identity (if verbalized by the patient): Male Sexual Orientation (if Verbalized by the Patient): Straight or Heterosexual Spiritual care concerns: No Agree to blood products: Yes Comments At time of signature, I have reviewed and agree with nursing past medical, surgical, social and family history unless otherwise noted. Please see nursing chart for further information. There is no relevant family history pertinent to the presenting complaint Exam Narrative: GENERAL: Well-a
== END 2023-09-14 15:05 | disposition home or self-care (01) ==
PROVIDERS: Emergency Provider Nurse Practitioner Family; PCP Nurse Practitioner Family
DX: B34.9 Viral infection, unspecified (principal); K21.9 Gastro-esophageal reflux disease without esophagitis
CPT/HCPCS: 71046; 99213; G0463

== ENCOUNTER 2024-05-31 08:48 | Emergency (ER) | payer OTHER, SELFPAY ==
--- NOTE | ~2024-05-31 | XR_ITS ---
Right wrist Technique: PA and lateral views were obtained. Clinical History: Pain Findings: No acute fracture or dislocation is seen. Osseous alignment is anatomic. Joint spaces are p reserved. Soft tissues are unremarkable. Impression: Unremarkable right wrist radiographs. Reviewed, dictated and finalized at location M. Impression: Unremarkable right wrist radiographs.
--- NOTE | ~2024-05-31 | XR_ITS ---
Left wrist Technique: PA and lateral views were obtained. Clinical History: Pain Findings: No acute fracture or dislocation is seen. Osseous alignment is anatomic. Joint spaces are p reserved. Soft tissues are unremarkable. Impression: Unremarkable left wrist radiographs. Reviewed, dictated and finalized at location M. Impression: Unremarkable left wrist radiographs.
--- NOTE | 2024-05-31 08:53 | ED.UPPEXIN ---
HPI - Extremity Injury (Upper) General Chief Complaint: Extremity Injury, Upper Stated Complaint: fall, hands swollen Time Seen by Provider: 05/31/24 08:56 Source: patient Mode of arrival: ambulatory Limitations: no limitations History of Present Illness HPI narrative: 53-year-old male presented for complaint of bilateral wrist pain and swelling after a fall 2 days ago. He states while caring abeba he tripped and fell landing on both knees and both hands. Has been taking Aleve. He is left-hand dominant. Endorses history of bilateral carpal tunnel release and is concerned he may MDM and something. He denies deformity, bruising, numbness, tingling or weakness. Related Data Allergies Allergy/AdvReac Type Severity Reaction Status Date / Time celecoxib Allergy Unknown Urticaria Verified 05/21/24 16:03 Review of Systems Review of Systems: CONSTITUTIONAL: Denies body aches, fever, chills EYES: Denies visual changes ENT: Denies rhinorrhea, congestion CARDIOVASCULAR: Denies chest pain, palpitations, or edema. RESPIRATORY: Denies cough or dyspnea. SKIN: Denies rash, itching, or wounds. MUSCULOSKELETAL: per hpi NEUROLOGIC: Denies headache, numbness, tingling, or weakness. All systems reviewed & are unremarkable except as noted in HPI and below PMFSH Past Medical History Medical History Dyslipidemia Seasonal allergic rhinitis Insomnia Ocular migraine Cubital tunnel syndrome, bilateral Bilateral carpal tunnel syndrome GERD (gastroesophageal reflux disease) Sleep apnea Pneumonia Surgical History Surgical History History of arthroscopic surgery of shoulder left(2018) and right(2014) for impingement syndrome Status post trigger finger release Bilateral, 2014 and 2015 S/P cubital tunnel release Bilateral, 2012 and 2013 History of bilateral carpal tunnel release 2009, 2011 H/O vasectomy 2006 H/O umbilical hernia repair 2011 Hx of tonsillectomy As a child Family History Family History Father Hypertension Mother Family history of malignant neoplasm of breast in first degree relative Other Cerebrovascular accident Family history of arthritis Social History Social History Social History: Mr. Campuzano lives at home with his , Iona, his two daughters and a grandchild. He reports drinking about 1 drink of alcohol per week. Never smoker, denies other substance use.designates his , Iona Campuzano, as his surrogate decision-maker and is full code status. Caffeine-daily Smoking status: Never smoker Second hand tobacco smoke exposure: No Alcohol intake: current Drinks per week: 1 Substance use: never Substance use type: does not use Do You Feel Safe in your Home?: Yes Lack of Transportation: No Lack of Food: Never True Current Housing: I Have Housing Concerned About Future Housing: No Difficulty Paying Gas/Electric Bills: No Difficulty Paying for Meds: No Currently Unemployed: No Education: Bachelor's Degree Difficulty w/ Childcare or Family Care: No Living arrangements: with family Occupation/Education: occupation Gender identity (if verbalized by the patient): Male Sexual Orientation (if Verbalized by the Patient): Straight or Heterosexual Spiritual care concerns: No Agree to blood products: Yes Comments At time of signature, I have reviewed and agree with nursing past medical, surgical, social and family history unless otherwise noted. Please see nursing chart for further information. There is no relevant family history pertinent to the presenting complaint Exam Narrative: GENERAL: Well-appearing CHEST: Speaks in full sentences. No respiratory distress. HEART: Regular rate and rhythm. Normal and equal peripheral pulses. EXTREMITIES: Bilateral hands with normal strength and sensation, normal range of motion of wrists and digits, endorses some difficulty with 5th digit finger cascade. Mild swelling to left palmar carpal area. No bruising or erythema. Tender with palpation of the left carpals, volar aspect and right dorsal surface over 1st metacarpal. No open wounds, or obvious deformity; pulse palpable and equal bilaterally, skin warm, dry, pink. Capillary refill less than 3 seconds. SKIN: Warm, dry NEURO: Alert and oriented x3. PSYCH: Normal mood and affect Course Course Emergency Course: Patient is aware of diagnosis, understands and agrees to treatment plan. Anticipatory guidance given. Patient agrees to follow-up as directed and is aware of reasons to seek care at the emergency department. Portions of this record may have been created with voice recognition software Level of Care: Express Care Visit Vital Signs Vital signs: Vital Signs Temperature 98 F 05/31/24 08:56 Pulse Rate 64 05/31/24 08:56 Respiratory Rate 14 03/15/25 08:56 Blood Pressure 131/85 05/31/24 08:56 Pulse Oximetry 98 05/31/24 08:56 Oxygen Delivery Room Air 05/31/24 08:56 Temperature 98 F 05/31/24 08:56 Pulse Rate 64 05/31/24 08:56 Respiratory Rate 14 05/31/24 08:56 Blood Pressure 131/85 05/31/24 08:56 Pulse Oximetry 98 05/31/24 08:56 Oxygen Delivery Room Air 05/31/24 08:56 Reviewed MDM - Extremity Injury (Upper) MDM Narrative Medical decision making narrative: Discussed physical exam findings and negative xrays. Says he is established with Dr Navarrete. Declined application of the SMITH wrap in clinic, wants to take it home. Advised supportive measures and signs/symptoms to go to the ER. Pt is appropriate for outpt treatment and f/u. Differential Diagnosis Differential diagnosis: Likely sprain and strain of wrist, fracture of wrist, finger sprain, dislocation of finger and fracture of hand Imaging Data Radiologist's impression: Patient: Peter Campuzano : 1970 MR#: [id number] Age: 53 Acct:[id number] Loc: [facility] ADM Date: 05/31/24Attending Dr: Ordering Physician: Erin Martins APRN Date of Service: 05/31/24 Procedure(s): XR wrist LT 2V Accession Number(s): [id number] cc: Erin Martins APRN; Kris Reich MD~ Left wrist Technique: PA and lateral views were obtained. Clinical History: Pain Findings: No acute fracture or dislocation is seen. Osseous alignment is anatomic. Joint spaces are preserved. Soft tissues are unremarkable. Impression: Unremarkable left wrist radiographs. Patient: Peter Campuzano : 1970 MR#: [id number] Age: 53 Acct:[id number] Loc: [facility] ADM Date: 05/31/24Attending Dr: Ordering Physician: Erin Martins APRN Date of Service: 05/31/24 Procedure(s): XR wrist RT 2V Accession Number(s): [id number] cc: Erin Mratins APRN; Kris Reich MD~ Right wrist Technique: PA and lateral views were obtained. Clinical History: Pain Findings: No acute fracture or dislocation is seen. Osseous alignment is anatomic. Joint spaces are preserved. Soft tissues are unremarkable. Impression: Unremarkable right wrist radiographs. Discharge Plan Discharge Clinical Impression: Bilateral hand pain Patient Disposition: Home, Self-Care Condition: Stable Instructions: Hand Sprain (ED) Additional Instructions: Rest and elevate the hands; avoid lifting, pushing, pulling etc. Apply ice 15-20 minute intervals several times a day Keep it wrapped with SMITH or use a soft wrist splint Motrin 800mg every 8 hours x5 days, alternate with Tylenol 1000mg every 8 hours as needed Follow up with your primary care provider and medical communication specialist as needed Go to the ER for worsening symptoms or concerns Patient Language: Kinyarwanda Prescriptions: No Action tadalafil [Cialis] 20 mg tablet 20 mg PO DAILY PRN (Reason: sexual activity) Qty: 90 3RF Rx Instructions: administer approximately 30min before sexual activity; do not use more than 1 dose per 24hrs paroxetine HCl 10 mg tablet 10 mg PO DAILY PRN (Reason: premature ejaculation) Qty: 90 0RF oxybutynin chloride 5 mg tablet extended release 24hr 5 mg PO DAILY Qty: 90 0RF Wegovy 2.4 mg/0.75 mL pen injector 2.4 mg subcut WEEKLY Qty: 3 1RF Follow-up/Referrals: Amada Reich MD [Primary Care Provider] -
[2024-05-31 08:56] VITALS: BP 131/85; PULSE 64; RESP 14; TEMP 36.6; O2SAT 98
== END 2024-05-31 10:00 | disposition home or self-care (01) ==
PROVIDERS: Emergency Provider Nurse Practitioner Family; PCP Family Medicine
DX: M79.642 Pain in left hand (principal); M79.641 Pain in right hand; E78.5 Hyperlipidemia, unspecified; K21.9 Gastro-esophageal reflux disease without esophagitis; Z98.52 Vasectomy status
CPT/HCPCS: 73100; 99214; G0463

== ENCOUNTER 2024-07-02 13:34 | Outpatient (CLI) | payer OTHER, SELFPAY ==
--- NOTE | ~2024-07-02 | MR_ITS ---
MRI of the brain Clinical History: Migraine Technique: Axial and sagittal T1-weighted images were acquired. These were followed by axial T2-weigh carmen, diffusion weighted, gradient, and FLAIR images. Findings: No abnormal signal seen in the brain parenchyma. No acute infarct, intracranial hemorrhage, or mass lesion. Ventricles and subarachnoid spaces are unremarkable. Orbits are unremarkable. Paranasal sinuses and m astoid air cells are clear. Major intracranial flow voids are intact. Sagittal midline structures are intact. IMPRESSION: Normal exam. Reviewed, dictated and finalized at location M. IMPRESSION: Normal exam.
== END 2024-07-02 13:35 | disposition home or self-care (01) ==
LOC: MICIMG 13:35
PROVIDERS: PCP Family Medicine; Visit Provider Family Medicine
DX: G43.109 Migraine with aura, not intractable, without status migrainosus (principal)
CPT/HCPCS: 70551

== ENCOUNTER 2024-07-05 08:49 | Emergency (ER) | payer OTHER, SELFPAY ==
[2024-07-05 09:05] VITALS: BP 118/81; PULSE 71; RESP 16; TEMP 36.1; O2SAT 98
--- NOTE | 2024-07-05 09:33 | ED_ITS ---
HPI - General Adult General Chief complaint: Ear Stated complaint: EARACHE Time Seen by Provider: 07/05/24 09:16 Source: patient and RN notes reviewed Mode of arrival: ambulatory Limitations: no limitations History of Present Illness HPI narrative: Patient presents today complaining of left ear pain since yesterday that occasionally radiates to his jaw and confucianist. Denies decreased hearing or drainage. Currently rates his pain 4/10 and has tried no [id number] treatment prior to arrival. Denies any additional symptoms. Related Data Allergies Allergy/AdvReac Type Severity Reaction Status Date / Time celecoxib Allergy Unknown Urticaria Verified 07/05/24 09:04 Review of Systems Review of Systems: CONSTITUTIONAL: Denies body aches, fever, chills, or sweats. EYES: Denies visual changes, redness, or discharge. ENT: Denies rhinorrhea, congestion, sore throat. + left ear pain CARDIOVASCULAR: Denies chest pain, palpitations, or edema. RESPIRATORY: Denies cough or dyspnea. GASTROINTESTINAL: Denies abdominal pain, nausea, vomiting, or diarrhea. GENITOURINARY: Denies dysuria or hematuria. SKIN: Denies rash, itching, or wounds. MUSCULOSKELETAL: Denies back pain, joint pain, or myalgia. NEUROLOGIC: Denies headache, numbness, tingling, or weakness. PSYCH: Denies depression or anxiety. [facility] Past Medical History Medical History Dyslipidemia Seasonal allergic rhinitis Insomnia Ocular migraine Cubital tunnel syndrome, bilateral Bilateral carpal tunnel syndrome GERD (gastroesophageal reflux disease) Sleep apnea Pneumonia Surgical History Surgical History History of arthroscopic surgery of shoulder left(2018) and right(2015) for impingement syndrome Status post trigger finger release Bilateral, 2014 and 2015 S/P cubital tunnel release Bilateral, 2012 and 2013 History of bilateral carpal tunnel release 2009, 2011 H/O vasectomy 2006 H/O umbilical hernia repair 2011 Hx of tonsillectomy As a child Family History Family History Father Hypertension Mother Family history of malignant neoplasm of breast in first degree relative Other Cerebrovascular accident Family history of arthritis Social History Social History Social History: Mr. Campuzano lives at home with his , Iona, his two daughters and a grandchild. He reports drinking about 1 drink of alcohol per week. Never smoker, denies other substance use.designates his , Iona Campuzano, as his surrogate decision-maker and is full code status. Caffeine-daily Smoking status: Never smoker Second hand tobacco smoke exposure: No Alcohol intake: current Drinks per week: 1 Substance use: never Substance use type: does not use Do You Feel Safe in your Home?: Yes Lack of Transportation: No Lack of Food: Never True Current Housing: I Have Housing Concerned About Future Housing: No Difficulty Paying Gas/Electric Bills: No Difficulty Paying for Meds: No Currently Unemployed: No Education: Bachelor's Degree Difficulty w/ Childcare or Family Care: No Living arrangements: with family Occupation/Education: occupation Gender identity (if verbalized by the patient): Male Sexual Orientation (if Verbalized by the Patient): Straight or Heterosexual Spiritual care concerns: No Agree to blood products: Yes Comments At time of signature, I have reviewed and agree with nursing past medical, surgical, social and family history unless otherwise noted. Please see nursing chart for further information. There is no relevant family history pertinent to the presenting complaint Exam Narrative: GENERAL: Well-appearing, well-nourished, and in no acute distress. HEAD: Normocephalic, atraumatic. EYES: EOMI. No redness or drainage. Conjunctivae normal. ENT: Mucous membranes pink and moist. Nares clear. No rhinorrhea. TMs normal bilaterally. Bilateral ear canals normal without movement or tragal tenderness. No tenderness to bilateral temporomandibular joints. No crepitus noted. No facial swelling or redness noted. Very mild tenderness over the area of the left parotid gland without edema. No tenderness to teeth. No obvious periapical abscess or swelling/redness of the gingiva. No lymphadenopathy. NECK: Normal AROM. Supple. CHEST: No respiratory distress. Clear to auscultation. HEART: Regular rate and rhythm. No murmur appreciated. EXTREMITIES: Normal range of motion. No edema. SKIN: Warm, dry, no rash. Capillary refill normal. Normal skin turgor. NEURO: No focal deficits. Alert and oriented x3. Gait steady. PSYCH: Normal affect. No signs of depression or anxiety. Course Course Level of Care: Express Care Visit Vital Signs Vital signs: Vital Signs Temperature 96.9 F L 07/05/24 09:05 Pulse Rate 71 07/05/24 09:05 Respiratory Rate 16 07/05/24 09:05 Blood Pressure 118/81 07/05/24 09:05 Pulse Oximetry 98 07/05/24 09:05 Temperature 96.9 F L 07/05/24 09:05 Pulse Rate 71 07/05/24 09:05 Respiratory Rate 16 07/05/24 09:05 Blood Pressure 118/81 07/05/24 09:05 Pulse Oximetry 98 07/05/24 09:05 Reviewed Medical Decision Making MDM Narrative Medical decision making narrative: Source of patient's discomfort is unclear. Will treat with Augmentin for early otitis media versus parotitis verses TM joint pain. Follow-up in ED precautions given. Differential Diagnosis Differential Diagnosis: Dental abscess, TM joint pain, otitis media, otitis externa, parotitis Vital Signs Vital Signs: Vital Signs Temperature 96.9 F L 07/05/24 09:05 Pulse Rate 71 07/05/24 09:05 Respiratory Rate 16 07/05/24 09:05 Blood Pressure 118/81 07/05/24 09:05 Pulse Oximetry 98 07/05/24 09:05 Temperature 96.9 F L 07/05/24 09:05 Pulse Rate 71 07/05/24 09:05 Respiratory Rate 16 07/05/24 09:05 Blood Pressure 118/81 07/05/24 09:05 Pulse Oximetry 98 07/05/24 09:05 Critical Care Time Critical Care Time Critical Care Time: No Discharge Plan Discharge Clinical Impression: Discomfort of left ear Patient Disposition: Home Condition: Stable Instructions: Antibiotic Form Additional Instructions: The source of your pain is unclear. Please take the Augmentin as prescribed. As discussed, if symptoms worsen to include fever, facial swelling, redness, please go to the ER immediately for further evaluation and treatment. Your blood pressure was elevated above 120/80 today at Urgent Care. This puts you above the threshold for follow up. Please schedule a followup visit with your personal physician as soon as possible, for further evaluation and treatment. Even blood pressure exceeding 120/80 may indicate pre-hypertension. Patient Language: Indonesian Prescriptions: New amoxicillin-pot clavulanate 875-125 mg tablet 1 tablet PO Q12H 7 Days Qty: 14 0RF No Action tadalafil [Cialis] 20 mg tablet 20 mg PO DAILY PRN (Reason: sexual activity) Qty: 90 3RF Rx Instructions: administer approximately 30min before sexual activity; do not use more than 1 dose per 24hrs paroxetine HCl 10 mg tablet 10 mg PO DAILY PRN (Reason: premature ejaculation) Qty: 90 0RF oxybutynin chloride 5 mg tablet extended release 24hr 5 mg PO DAILY Qty: 90 0RF Zepbound 7.5 mg/0.5 mL pen injector 7.5 mg subcut WEEKLY Qty: 2 0RF Follow-up/Referrals: Amada Reich MD [Primary Care Provider] - Time of Disposition: 09:36
== END 2024-07-05 09:42 | disposition home or self-care (01) ==
PROVIDERS: Emergency Provider Nurse Practitioner; PCP Family Medicine
DX: H92.02 Otalgia, left ear (principal); E78.5 Hyperlipidemia, unspecified; K21.9 Gastro-esophageal reflux disease without esophagitis; Z98.52 Vasectomy status
CPT/HCPCS: 99213; G0463

== ENCOUNTER 2024-07-09 10:23 | Outpatient (CLI) | payer OTHER, SELFPAY ==
--- OUTSIDE RECORDS SUMMARY | 2024-07-09 11:57 | XMS_ITS | Continuity of Care Document ---
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 It does not include entries that were removed or entered in error. 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 DoD ASTIGMATISM Active Condition DoD VISUAL DISTURBANCES Active Condition Do D CONTACT DERMATITIS DUE TO PLANTS POISON NYDIA Inactive Condition DoD Administrative Evaluation Services Inactive Condition DoD drip or drainage down throat from above Active Condition DoD BRONCHITIS Inactive Condition DoD VITAMIN DEFICIENCY Active Condition DoD visit for: refer patient without exam or treatment Inactive Condition DoD Laboratory Studies Inactive Condition Do D OSTEOARTHRITIS LOCALIZED SECONDARY VERTEBRAL CERVICAL Active Condition DoD Metabolic Tests Nonspecific Elevation Of Transaminase Levels Active Condition Do D Blood Pressure Isolated Elevated Active Condition DoD CERVICALGIA Active Condition DoD Other Physical Therapy Active Condition DoD limb pain Active Condition DoD ESSENTIAL HYPERTRIGLYCERIDEMIA Active Condition DoD pain during urination (dysuria) Active Condition DoD joint pain, localized in the elbow Active Condition DoD joint pain, localized in the shoulder Active Condition DoD IMPAIRED FASTING GLUCOSE Active Condition DoD HEMATURIA Active Condition DoD foot pain (soft tissue) Active Condition DoD LATERAL EPICONDYLITIS (TENNIS ELBOW) Active Condition DoD FATTY LIVER Active Condition DoD Patient Education Active Condition DoD TENDONITIS ROTATOR CUFF Active Condition DoD lower back pain Inactive Condition 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 DoD joint pain fingers Active Condition 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 DoD visit for: screening exam hypertension Inactive Condition DoD PRURITUS ANI Inactive Condition DoD mismatch of sleep / wake schedule with lifestyle needs Active Condition DoD TENDONITIS BICIPITAL Active Condition D oD Vaccines Prophylactic Need Against Td Inactive Condition DoD SENSORINEURAL HEARING LOSS Active Condition DoD HYPERLIPIDEMIA Active Condition DoD visit for: occupational health / fitness exam Active Condition DoD Patient Counseling: Active Condition Do D visit for: services physical Inactive Condition DoD visit for: administrative purpose Inactive Condition Do D HERPES SIMPLEX TYPE I Active Condition DoD Aftercare Following Surgery Of Genitourinary System Active Condition DoD visit for: preoperative urological exam Inactive Condition 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 DoD APHTHOUS ULCER Inactive Condition DoD LEG STRAIN POSTERIOR TIBIALIS LEFT Inactive Condition Denied need for light duty. DoD LUMBAGO Active Condition DoD PROSTATITIS ACUTE BACTERIAL Active Condition 3 days of dull pubic pain/prolon ged urine starting; normal UA/CBC; start Bactrim; f/u in 1 weeks if sxs persist DoD Need For Vaccination Typhoid Inactive Condition [facility] visit for: screening exam pulmonary tuberculosis Inactive Condition [facility] visit for: screening exam Inactive Condition DoD FOREIGN BODY - CONJUNCTIVAL SAC Active Condition DoD EPIDIDYMITIS LEFT Active Condition Li myles epididymiti s. Trace blood on dip UA today. Discussed that could also be kidney stone, although less likely (given that he is tender at epidydimis) . Discussed warning signs. Recommend Tequin x 10 days. F/U in 2 weeks. [facility] MALE INFERTILITY Active Condition 1. Has semen analysis pending for June. 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 [facility] Diagnosis: ICD-10-CM K03.6 Deposits [accretions] on teeth Active Diagnosis [facility] Diagnosis: ICD-10-CM H90.3 Sensorineural hearing loss, bilateral Active Diagnosis [facility] Diagnosis: ICD-10-CM H52.7 Unspecified disorder of refraction Active Diagnosis [facility] Medications Combined list of outpatient medications from Department of Defense and Veterans Affairs facilities.Medications provided include 1) outpatient medications from the last 15 months, and 2) patient-reported medications. Medication Details Route Status Patient Instructions Prescription Expires Prescription Number Last Dispense Date Ordering Provider Order Date Order Qty Source acyclovir 400 mg oral tablet TAKE TWO TABLETS BY MOUTH EVERY EIGHT HOURS FOR 5 DAYS DIRECTED , # 30 EA, 2 total refill(s ), Acute Complet ed 10/13/2022 2 2022 30.0 Ambulat ory Pharmac y acyclovir 400 mg oral tablet TAKE TWO TABLETS BY MOUTH EVERY EIGHT HOURS FOR 5 DAYS DIRECTED , # 90 EA, 2 total refill(s ), Acute Complet ed 03/30/2023 3 2023 90.0 Ambulat ory Pharmac y acyclovir 5% topical cream APPLY TO THE AFFECTED AREA(S) FIVE TIMES PER DAY DIRECTED , # 15 g, 2 total refill(s ), Acute Complet ed 10/13/2022 3 2022 15.0 Ambulat ory Pharmac y albuterol 90 mcg/inh inhalation aerosol INHALE 2 PUFFS BY MOUTH FOUR TIMES A DAY NEEDED, # 8.5 g, 3 total refill(s ), Acute Complet ed 10/18/2022 3 2022 8.5 Ambulat ory Pharmac y atorvastati n 10 mg tablet 10 mg, Oral, Daily, # 90 EA, 1 total refill(s ), Hard Stop Oral (given by mouth) Ordered 07/24/2024 4 2023 90.0 Ambulat ory Pharmac y Contrave ER 90 mg-8 mg tablet See Instruct ions, # 180 EA, 0 total refill(s ), Hard Stop Complet ed 12/27/2023 4 2023 180.0 Ambulat ory Pharmac y Contrave ER 90 mg-8 mg tablet = 1 tab(s), Oral, every morning, # 90 EA, 3 total refill(s ), Hard Stop Oral (given by mouth) Discont inued 09/27/2023 4 2023 90.0 Ambulat ory Pharmac y diclofenac 1% topical gel USE DOSING CARD TO APPLY 2 GRAMS TO THE AFFECTED AREA(S) FOUR TIMES A DAY DIRECTED , # 300 g, 5 total refill(s ), Acute Complet ed 03/30/2023 3 2023 300.0 Ambulat ory Pharmac y EPINEPHrine (eqv-epi-pe n) 0.3mg autoinjecto r kit [2EA] See Instruct ions, # 4 EA, 3 total refill(s ), Hard Stop Complet ed 11/02/2023 3 2023 4.0 Ambulat ory Pharmac y fexofenadin e 180 mg tablet See dose instruct ions in comments , # 90 EA, 2 total refill(s ), Acute Complet ed 03/30/2023 3 2023 90.0 Ambulat ory Pharmac y fexofenadin e 60 mg tablet 60 mg, Oral, every 12 hr, # 180 EA, 1 total refill(s ), Hard Stop Oral (given by mouth) Ordered 10/07/2024 5 2024 180.0 Ambulat ory Pharmac y fexofenadin e 60 mg tablet 60 mg, Oral, every 12 hr, # 90 EA, 4 total refill(s ), Hard Stop Oral (given by mouth) Discont inued 10/08/2023 4 2023 90.0 Ambulat ory Pharmac y Fexofenadin e Hydrochlori de (Fabi) Tablet 60 mg Oral Take with plenty of water.Ob tain advice for OTCs.Flavio id grapefru it and grapefru it juice. Active 07/19/2024 [id number] 4 [address] [place] [address] Goran VÁSQUEZ ([facility] [facility] fluticasone 50 mcg/inh nasal spray USE 2 SPRAYS IN EACH NOSTRIL EVERY DAY, # 48 g, 1 total refill(s ), Acute Complet ed 10/13/2022 3 2022 48.0 Ambulat ory Pharmac y IRX: Tadalafil 20 mg vs Placebo Tablet Oral Take or use exactly as directed .Obtain advice for OTCs.Flavio id nitrates . Active 07/19/2024 [id number] 4 [address] [place] [address] Goran VÁSQUEZ ([facility] [place] [facility] phentermine 37.5 mg tablet See Instruct ions, # 30 EA, 2 total refill(s ), Hard Stop Complet ed 04/21/2023 3 2023 30.0 Ambulat ory Pharmac y sertraline 50 mg oral tablet TAKE ONE TABLET DAILY, # 90 EA, 3 total refill(s ), Acute Complet ed 10/13/2022 2 2022 90.0 Ambulat ory Pharmac y tadalafil 20 mg tablet See Instruct ions, Oral, # 30 EA, 3 total refill(s ), Hard Stop Oral (given by mouth) Ordered 07/19/2024 4 2023 30.0 Ambulat ory Pharmac y traZODone 50 mg tablet See Instruct ions, Oral, # 30 EA, 3 total refill(s ), Hard Stop Oral (given by mouth) Ordered 07/19/2024 4 2023 30.0 Ambulat ory Pharmac y Trazodone Hydrochlori de (Desyrel Eq.) Tablet 50 mg Oral Take with food/mil k.Take or use exactly as directed .Obtain advice for OTCs.May cause drowsine ss/dizzi ness. Active 07/19/2024 [id number] 4 2023 30 [facility] Goran VÁSQUEZ ([facility] [place] Wegovy 0.25 mg/0.5 mL inj-pen [4pens/2mL] See Instruct ions, # 2 mL, 0 total refill(s ), Hard Stop Notes: refriger ate Ordered 08/19/2024 4 2023 2.0 Ambulat ory Pharmac y Allergies, Adverse Reactions, Alerts Combined list of allergies from Department of Defense and Veterans Affairs facilities. It does not include entries that were removed or entered in error. Substance Category Reaction Severity Reaction type Status Date Reported Comments Source CELECOXIB Propensity to adverse reactions to drug (finding) Urticaria active 9 . [facility] No Known Allergies Drug allergy (disorder) active 2 [facility] [place] [place] Immunizations Combined list of available immunizations from the Department of Defense and Veterans Affairs facilities. Immunization Series Date Given Administered By Site Reaction Lot Number CVX Code Drug Measuring Machine Tender Status Comments Source INFLUENZA, INJECTABLE, MDCK, PRESERVATIVE FREE, QUADRIVALENT 2020 171 complet ed HISTORICA L INFORMATI ON - FROM OTHER PROVIDER, Partner:Aden BRISENO.Admin istered by:[facility] [id number].([id number]) .[facility]:[id number] ddress:[address] [facility] .[id number] 5 Dosage: ML 0.5 [facility] COVID-19 (MODERNA), MRNA, LNP-S, PF, 100 MCG/0.5 ML DOSE 2 2020 207 complet ed MOD; [id number]; 1 [facility] COVID-19 (MODERNA), MRNA, LNP-S, PF, 100 MCG/0.5 ML DOSE 1 2020 207 complet ed MOD; [id number]; 1 [facility] hepatitis B adult vaccine 2011 [id number] 43 GlaxoSmithKli ne complet ed hepatitis B adult vaccine 07/21/11 Given Ambulat ory Pharmac y hepatitis B vaccine, adult dosage 2 2011 [id number] 43 SmithKline (SKB) complet ed hepatitis B vaccine, adult dosage DoD hepatitis B adult vaccine 2011 [id number] 43 GlaxoSmithKli ne complet ed hepatitis B adult vaccine 06/20/11 Given Ambulat ory Pharmac y hepatitis B vaccine, adult dosage 0 2011 [id number] 43 SmithKline (SKB) complet ed hepatitis B vaccine, adult dosage DoD influenza virus vaccine, live 2010 [id number] Medimmune Inc comple t ed influenza virus vaccine, live 01/11/11 Given Ambulat ory Pharmac y influenza virus vaccine, live, attenuated, for intranasal use 0 2010 [id number] 111 MedISparkle.csune[employer] Inc. (MED) complet ed influenza virus vaccine, live, attenuate d, for intranasa l use DoD influenza virus vaccine, live 2009 [id number] 111 Medimmune Inc comple t ed influenza virus vaccine, live 01/26/10 Given Ambulat ory Pharmac y influenza virus vaccine, live, attenuated, for intranasal use 1 2009 [id number] 111 MedImmune, Inc. (MED) complet ed influenza virus vaccine, live, attenuate d, for intranasa l use DoD Novel influenza-H1N 1-09, injectable 2008 zzLef t Arm [id number] 127 Novartis Pharmaceutica ls complet ed Novel influenza -V5I4-40, injectabl e 02/01/09 Given Ambulat ory Pharmac y Novel influenza-H1N 1-09, injectable 1 2008 Unknown, Provider [id number] 127 Novartis Pharmaceutica l Lise. (NOV) complet ed Novel influenza -[id number], injectabl e DoD influenza virus vaccine, live 2008 [id number] 111 Medimmune Inc comple t ed influenza virus vaccine, live 12/03/08 Given Ambulat ory Pharmac y influenza virus vaccine, live, attenuated, for intranasal use 1 2008 Unknown, Provider [id number] 111 MedImmune, Inc. (MED) complet ed influenza virus vaccine, live, attenuate d, for intranasa l use DoD influenza virus vaccine, live 2008 [id number] 111 Unknown complet ed influenza virus vaccine, live 12/02/08 Given Ambulat ory Pharmac y influenza virus vaccine, live, attenuated, for intranasal use 0 2008 [id number] 111 Unknown (UNK) comple t ed influenza virus vaccine, live, attenuate d, for intranasa l use DoD influenza virus vaccine, live 2007 [id number] 111 Medimmune Inc comple t ed influenza virus vaccine, live 02/11/08 Given Ambulat ory Pharmac y influenza virus vaccine, live, attenuated, for intranasal use 1 2007 Unknown, Provider [id number] 111 MedImmune, Inc. (MED) complet ed influenza virus vaccine, live, attenuate d, for intranasa l use DoD influenza virus vaccine, live 2007 [id number] 111 Medimmune Inc comple t ed influenza virus vaccine, live 02/05/08 Given Ambulat ory Pharmac y influenza virus vaccine, live, attenuated, for intranasal use 0 2007 [id number] 111 MedImmune, Inc. (MED) complet ed influenza virus vaccine, live, attenuate d, for intranasa l use DoD tetanus-dipht h toxoids (Td) adult/adol 2007 UNK 09 sanofi pasteur complet ed tetanus-d iphth toxoids (Td) adult/ado l 10/14/07 Given Ambulat ory Pharmac y tetanus, diphtheria, acellular pertu is 2007 zzLef t Arm TRANSCR IBED 115 complet ed tetanus, diphtheri a, acellular pertussis 10/14/07 Given Ambulat ory Pharmac y tetanus and diphtheria toxoids, adsorbed, preservative free, for adult use (2 Lf of tetanus toxoid and 2 Lf of diphtheria toxoid) 0 2007 UNK 09 Sanofi Pasteur (PMC) complet ed tetanus and diphtheri a toxoids, adsorbed, preservat john free, for adult use (2 Lf of tetanus toxoid and 2 Lf of diphtheri a toxoid) DoD tetanus toxoid, reduced diphtheria toxoid, and acellular pertu is vaccine, adsorbed 0 2007 Unknown, Provider 115 Transcribed (TRS) complet ed tetanus toxoid, reduced diphtheri a toxoid, and acellular pertussis vaccine, adsorbed DoD influenza virus vaccine,split 2006 zzLef t Arm [id number] [id number] 15 GlaxoSmithKli ne complet ed influenza virus vaccine,s plit 03/07/07 Given Ambulat ory Pharmac y influenza virus vaccine, split virus (incl. purified surface antigen)-reti red CODE 1 2006 Unknown, Provider [id number] 0aa 15 SmithKline (SKB) complet ed influenza virus vaccine, split virus (incl. purified surface antigen)- retired CODE DoD tuberculin purified protein derivative 2006 zzLef t Arm [id number] sanofi pasteur complet ed Patient Tolerance : Negative Ambulat ory Pharmac y tuberculin skin test; purified protein derivative solution, intradermal 1 2006 Unknown, Provider [id number] 96 Sanofi Pasteur (PMC) complet ed tuberculi n skin test; purified protein derivativ e solution, intraderm al DoD influenza virus vaccine,split 2005 [id number] 15 sanofi pasteur complet ed influenza virus vaccine,s plit 03/01/06 Given Ambulat ory Pharmac y influenza virus vaccine, split virus (incl. purified surface antigen)-reti red CODE 1 2005 [id number] 15 Sanofi Pasteur (PMC) complet ed influenza virus vaccine, split virus (incl. purified surface antigen)- retired CODE DoD varicella virus vaccine 0 2005 21 () Not Given varicella virus vaccine DoD tuberculin purified protein derivative 2005 zzLef t Arm [id number] 96 sanofi pasteur complet ed Patient Tolerance : Negative Ambulat ory Pharmac y typhoid Vi capsular polysaccharid e vac 2005 zzLef t Arm [id number] sanofi pasteur complet ed typhoid Vi capsular polysacch aride vac 12/05/05 Given Ambulat ory Pharmac y typhoid vaccine, parenteral 2005 [id number] 41 Unknown complet ed typhoid vaccine, parentera l 12/05/05 Given Ambulat ory Pharmac y typhoid vaccine, parenteral, other than acetone-kille d, dried 1 2005 [id number] 41 Unknown (UNK) comple t ed typhoid vaccine, parentera l, other than acetone-k illed, dried DoD tuberculin skin test; purified protein derivative solution, intradermal 1 2005 MYLES RYAN [id number] 96 Sanofi Pasteur ([facility]) complet ed tuberculi n skin test; purified protein derivativ e solution, intraderm al DoD typhoid Vi capsular polysaccharid e vaccine 1 2005 MYLES RYAN [id number] 101 Sanofi Pasteur ([facility]) complet ed typhoid Vi capsular polysacch aride vaccine DoD influenza virus vaccine,split 2002 [id number] Novartis Pharmaceutica ls complet ed influenza virus vaccine,s plit 02/21/03 Given Ambulat ory Pharmac y influenza virus vaccine, split virus (incl. purified surface antigen)-reti red CODE 1 2002 Unknown, Provider [id number] PowderJect Pharmaceutica ls (PWJ) complet ed influenza virus vaccine, split virus (incl. purified surface antigen)- retired CODE DoD influenza virus vaccine,split 2002 [id number] 15 Unknown complet ed influenza virus vaccine,s plit 08/28/02 Given Ambulat ory Pharmac y influenza virus vaccine, split virus (incl. purified surface antigen)-reti red CODE 0 2002 Unknown, Provider [id number] 15 Unknown (UNK) complet ed influenza virus vaccine, split virus (incl. purified surface antigen)- retired CODE DoD yellow fever vaccine 1999 UNK 37 Unknown complet ed yellow fever vaccine 12/07/99 Given Ambulat ory Pharmac y yellow fever vaccine 1 1999 Unknown, Provider UNK 37 Unknown (UNK) complet ed yellow fever vaccine DoD anthrax vaccine 1999 [id number] Unknown complet ed anthrax vaccine 05/11/99 Given Ambulat ory Pharmac y anthrax vaccine 4 1999 Unknown, Provider [id number] Other (OTH) complet ed anthrax vaccine DoD anthrax vaccine 1999 UNKNOWN 24 Unknown complet ed anthrax vaccine 05/09/99 Given Ambulat ory Pharmac y anthrax vaccine 4 1999 Unknown, Provider UNKNOWN 24 Unknown (UNK) complet ed anthrax vaccine DoD influenza virus vaccine,split 1998 [id number] sanofi pasteur complet ed influenza virus vaccine,s plit 02/17/99 Given Ambulat ory Pharmac y influenza virus vaccine, split virus (incl. purified surface antigen)-reti red CODE 0 1998 Unknown, Provider [id number] 15 Sanofi Pasteur (PMC) complet ed influenza virus vaccine, split virus (incl. purified surface antigen)- retired CODE DoD hepatitis A adult vaccine 1998 UNKNOWN 52 Unknown complet ed hepatitis A adult vaccine 01/28/99 Given Ambulat ory Pharmac y hepatitis A vaccine, adult dosage 2 1998 Unknown, Provider UNKNOWN 52 Unknown (UNK) complet ed hepatitis A vaccine, adult dosage DoD hepatitis A adult vaccine 1998 UNK 52 Unknown complet ed hepatitis A adult vaccine 01/27/99 Given Ambulat ory Pharmac y hepatitis A vaccine, adult dosage 2 1998 Unknown, Provider UNK 52 Unknown (UNK) complet ed hepatitis A vaccine, adult dosage DoD anthrax vaccine 1998 [id number] 24 Unknown complet ed anthrax vaccine 12/07/98 Given Ambulat ory Pharmac y anthrax vaccine 3 1998 Unknown, Provider [id number] Other (OTH) complet ed anthrax vaccine DoD anthrax vaccine 1998 UNK 24 Unknown complet ed anthrax vaccine 11/23/98 Given Ambulat ory Pharmac y anthrax vaccine 2 1998 Unknown, Provider UNK 24 Unknown (UNK) complet ed anthrax vaccine DoD anthrax vaccine 1998 UNK 24 Unknown complet ed anthrax vaccine 11/08/98 Given Ambulat ory Pharmac y anthrax vaccine 1 1998 Unknown, Provider UNK 24 Unknown (UNK) complet ed anthrax vaccine DoD influenza virus vaccine,split 1997 UNKNOWN 15 Unknown complet ed influenza virus vaccine,s plit 03/03/98 Given Ambulat ory Pharmac y influenza virus vaccine, split virus (incl. purified surface antigen)-reti red CODE 0 1997 Unknown, Provider UNKNOWN 15 Unknown (UNK) complet ed influenza virus vaccine, split virus (incl. purified surface antigen)- retired CODE DoD typhoid vaccine, parenteral 1997 UNKNOWN 41 Unknown complet ed typhoid vaccine, parentera l 01/27/98 Given Ambulat ory Pharmac y typhoid vaccine, parenteral, other than acetone-kille d, dried 0 1997 Unknown, Provider UNKNOWN 41 Unknown (UNK) complet ed typhoid vaccine, parentera l, other than acetone-k illed, dried DoD tetanus-dipht h toxoids (Td) adult/adol 1997 UNKNOWN 09 Unknown complet ed tetanus-d iphth toxoids (Td) adult/ado l 01/02/98 Given Ambulat ory Pharmac y tetanus and diphtheria toxoids, adsorbed, preservative free, for adult use (2 Lf of tetanus toxoid and 2 Lf of diphtheria toxoid) 0 1997 Unknown, Provider UNKNOWN 09 Unknown (UNK) complet ed tetanus and diphtheri a toxoids, adsorbed, preservat john free, for adult use (2 Lf of tetanus toxoid and 2 Lf of diphtheri a toxoid) DoD poliovirus vaccine, inactivated 1986 UNK 10 Unknown complet ed polioviru s vaccine, inactivat ed 10/21/86 Given Ambulat ory Pharmac y measles/mumps /rubella virus vaccine 1986 UNK 03 Unknown complet ed measles/m umps/rube lla virus vaccine 10/21/86 Given Ambulat ory Pharmac y poliovirus vaccine, live, oral 1986 UNKNOWN 02 Unknown complet ed polioviru s vaccine, live, oral 10/21/86 Given Ambulat ory Pharmac y yellow fever vaccine 1986 UNKNOWN 37 Unknown complet ed yellow fever vaccine 10/21/86 Given Ambulat ory Pharmac y trivalent poliovirus vaccine, live, oral 0 1986 Unknown, Provider UNKNOWN 02 Unknown (UNK) complet ed trivalent polioviru s vaccine, live, oral DoD measles, mumps and rubella virus vaccine 1 1986 Unknown, Provider UNK 03 Unknown (UNK) complet ed measles, mumps and rubella virus vaccine DoD poliovirus vaccine, inactivated 1 1986 Unknown, Provider UNK 10 Unknown (UNK) complet ed polioviru s vaccine, inactivat ed DoD yellow fever vaccine 0 1986 Unknown, Provider UNKNOWN 37 Unknown (UNK) complet ed yellow fever vaccine DoD adenovirus vaccine, type 4, live, oral 1986 UNKNOWN 54 Unknown complet ed adenoviru s vaccine, type 4, live, oral 09/01/86 Given Ambulat ory Pharmac y adenovirus vaccine, type 4, live, oral 0 1986 Unknown, Provider UNKNOWN 54 Unknown (UNK) complet ed adenoviru s vaccine, type 4, live, oral DoD measles/mumps /rubella virus vaccine 1986 UNKNOWN 03 Unknown complet ed measles/m umps/rube lla virus vaccine 07/24/86 Given Ambulat ory Pharmac y measles, mumps and rubella virus vaccine 0 1986 Unknown, Provider UNKNOWN 03 Unknown (UNK) complet ed measles, mumps and rubella virus vaccine DoD Encounters Combined list of: 1) Encounters from Department of Veterans Affairs facilities going backup to the last 18 months, not all VA inpatient encounters are included; 2) Encounters from the Department of Defense facilities going backup to 280 months. Location Location Details Encounter Type Encounter Number Reason For Visit Attending Provider ADM Date DC Date Status Disposition Source [facility] [place] [id number] pre op for vv 03/24 RODNEY HOPKINS 03/24 Released w/o Limitations [facility] [facility]) [place] [id number] f/u vasecto my reversa NICK Zaldivar 05/23 Released w/o Limitations [facility] [facility]) [place] [id number] re ck pain from March VV FANTASMA BECK 06/09 [place] [facility] [facility] [facility] [facility] [id number] corneal abrimeldao n GALO Cole 07/28 [place] [facility] [facility] OUTPATIENT [id number] PHA ALEX, KYREE S 11/30 [place]ased [place] Limitations [facility] [facility] [facility] [facility]) [place] [id number] typhoid /tst JAQUANELE MYLES M 12/05 [place] Limitations [facility] [facility] [place] [facility] [facility]) OUTPATIENT [id number] Flank pain SRINI SMITH V 03/01 Released w/o Limitations [facility]) [facility]) OUTPATIENT [id number] back pain JUSTEN CARTER 03/02 Released w/o Limitations [facility] [place] [place] [id number] pulled muscle in left calf GENEVIEVE HEARD 10/15 Released w/o Limitations [facility]IENT [id number] sleep disorde MESHA Ramos 10/15 Released w/o Limitations [facility] OUTPATIENT [id number] TST IFEANYI MALDONADO 11/23 Released w/o Limitations [facility] [place] Immun[facility] OUTPATIENT [id number] PHA ALEX, KYREE S 12/06 Released w/o Limitations [facility] [place] OUTPATIENT [id number] SRINI Do 12/06 Released w/o Limitations [facility] [place]) [place] [place] [facility] OUTPATIENT [id number] derm/wa rt clinic MACIE RAMIREZ 02/21 Released w/o Limitations [place] [facility] [place] [place] [facility] OUTPATIENT [id number] derm clinic MACIE RAMIREZ 03/07 Released w/o Limitations [place] [facility]) [place](Im munizatio n [facility]) OUTPATIENT [id number] flu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 SCREENING TEST OF VISUAL ACUITY, QUANTITATIVE, BILATERAL DoD ELECTROACOUSTIC EVALUATION FOR HEARING AID; MONAURAL DoD IMMUNIZATION ADMINISTRATION BY INTRANASAL OR ORAL ROUTE; 1 VACCINE (SINGLE OR COMBINATION VACCINE/TOXOID) DoD ACOUSTIC REFLEX TESTING, THRESHOLD [facility] TETANUS, DIPHTHERIA TOXOIDS AND ACELLULAR PERTUSSIS VACCINE (TDAP), WHEN ADMINISTERED TO INDIVIDUALS 7 YEARS OR OLDER, FOR INTRAMUSCULAR USE [facility] ANESTHESIA FOR PROCEDURES ON MALE GENITALIA (INCLUDING OPEN URETHRAL PROCEDURES); NOT OTHERWISE SPECIFIED [facility] INFLUENZA VIRUS VACCINE, TRIVALENT (IIV3), SPLIT VIRUS, 0.5 ML DOSAGE, FOR INTRAMUSCULAR USE DoD DESTRUCTION (EG, LASER SURGERY, ELECTROSURGERY, CRYOSURGERY, CHEMOSURGERY, SURGICAL CURETTEMENT), OF BENIGN LESIONS OTHER THAN SKIN TAGS OR CUTANEOUS VASCULAR PROLIFERATIVE LESIONS; UP TO 14 LESIONS DoD DESTRUCTION (EG, LASER SURGERY, ELECTROSURGERY, CRYOSURGERY, CHEMOSURGERY, SURGICAL CURETTEMENT), OF BENIGN LESIONS OTHER THAN SKIN TAGS OR CUTANEOUS VASCULAR PROLIFERATIVE LESIONS; UP TO 14 LESIONS DoD TELE ASSESS & MGT SRV PROV QUAL NONPHYS HLTH CARE PRO TO EST PAT,PARENT,GUARD NOT ORIG REL ASSESS & MGT SRV PROV W/IN PREV 7 DAYS NOR LEAD ASSESS & MGT SRV/PX W/IN NXT 24 HR/SOON APT;5-10 MIN MED DIS 013 DoD TELE ASSESS & MGT SRV PROV QUAL NONPHYS HLTH CARE PRO TO EST PAT,PARENT,GUARD NOT ORIG REL ASSESS & MGT SRV PROV W/IN PREV 7 DAYS NOR LEAD ASSESS & MGT SRV/PX W/IN NXT 24 HR/SOON APT;5-10 MIN MED DIS 012 DoD TELE ASSESS & MGT SRV PROV QUAL NONPHYS HLTH CARE PRO TO EST PAT,PARENT,GUARD NOT ORIG REL ASSESS & MGT SRV PROV W/IN PREV 7 DAYS NOR LEAD ASSESS & MGT SRV/PX W/IN NXT 24 HR/SOON APT;5-10 MIN MED DIS 012 DoD TELE ASSESS & MGT SRV PROV QUAL NONPHYS HLTH CARE PRO TO EST PAT,PARENT,GUARD NOT ORIG REL ASSESS & MGT SRV PROV W/IN PREV 7 DAYS NOR LEAD ASSESS & MGT SRV/PX W/IN NXT 24 HR/SOON APT;5-10 MIN MED DIS 012 DoD TELE ASSESS & MGT SRV PROV QUAL NONPHYS HLTH CARE PRO TO EST PAT,PARENT,GUARD NOT ORIG REL ASSESS & MGT SRV PROV W/IN PREV 7 DAYS NOR LEAD ASSESS & MGT SRV/PX W/IN NXT 24 HR/SOON APT;5-10 MIN MED DIS 012 DoD FITTING OF SPECTACLES, EXCEPT FOR APHAKIA; MONOFOCAL 012 DoD TELE ASSESS & MGT SRV PROV QUAL NONPHYS HLTH CARE PRO TO EST PAT,PARENT,GUARD NOT ORIG REL ASSESS & MGT SRV PROV W/IN PREV 7 DAYS NOR LEAD ASSESS & MGT SRV/PX W/IN NXT 24 HR/SOON APT;5-10 MIN MED DIS 012 DoD TELE ASSESS & MGT SRV PROV QUAL NONPHYS HLTH CARE PRO TO EST PAT,PARENT,GUARD NOT ORIG REL ASSESS & MGT SRV PROV W/IN PREV 7 DAYS NOR LEAD ASSESS & MGT SRV/PX W/IN NXT 24 HR/SOON APT;5-10 MIN MED DIS 012 DoD TELE ASSESS & MGT SRV PROV QUAL NONPHYS HLTH CARE PRO TO EST PAT,PARENT,GUARD NOT ORIG REL ASSESS & MGT SRV PROV W/IN PREV 7 DAYS NOR LEAD ASSESS & MGT SRV/PX W/IN NXT 24 HR/SOON APT;5-10 MIN MED DIS 012 DoD TELE ASSESS & MGT SRV PROV QUAL NONPHYS HLTH CARE PRO TO EST PAT,PARENT,GUARD NOT ORIG REL ASSESS & MGT SRV PROV W/IN PREV 7 DAYS NOR LEAD ASSESS & MGT SRV/PX W/IN NXT 24 HR/SOON APT;5-10 MIN MED DIS 012 DoD TELE ASSESS & MGT SRV PROV QUAL NONPHYS HLTH CARE PRO TO EST PAT,PARENT,GUARD NOT ORIG REL ASSESS & MGT SRV PROV W/IN PREV 7 DAYS NOR LEAD ASSESS & MGT SRV/PX W/IN NXT 24 HR/SOON APT;5-10 MIN MED DIS 012 DoD TELE ASSESS & MGT SRV PROV QUAL NONPHYS HLTH CARE PRO TO EST PAT,PARENT,GUARD NOT ORIG REL ASSESS & MGT SRV PROV W/IN PREV 7 DAYS NOR LEAD ASSESS & MGT SRV/PX W/IN NXT 24 HR/SOON APT;5-10 MIN MED DIS 012 DoD TELE ASSESS & MGT SRV PROV QUAL NONPHYS HLTH CARE PRO TO EST PAT,PARENT,GUARD NOT ORIG REL ASSESS & MGT SRV PROV W/IN PREV 7 DAYS NOR LEAD ASSESS & MGT SRV/PX W/IN NXT 24 HR/SOON APT;5-10 MIN MED DIS 011 DoD TELE ASSESS & MGT SRV PROV QUAL NONPHYS HLTH CARE PRO TO EST PAT,PARENT,GUARD NOT ORIG REL ASSESS & MGT SRV PROV W/IN PREV 7 DAYS NOR LEAD ASSESS & MGT SRV/PX W/IN NXT 24 HR/SOON APT;5-10 MIN MED DIS 011 DoD TELE ASSESS & MGT SRV PROV QUAL NONPHYS HLTH CARE PRO TO EST PAT,PARENT,GUARD NOT ORIG REL ASSESS & MGT SRV PROV W/IN PREV 7 DAYS NOR LEAD ASSESS & MGT SRV/PX W/IN NXT 24 HR/SOON APT;5-10 MIN MED DIS 011 DoD TELE ASSESS & MGT SRV PROV QUAL NONPHYS HLTH CARE PRO TO EST PAT,PARENT,GUARD NOT ORIG REL ASSESS & MGT SRV PROV W/IN PREV 7 DAYS NOR LEAD ASSESS & MGT SRV/PX W/IN NXT 24 HR/SOON APT;5-10 MIN MED DIS 011 DoD TELE ASSESS & MGT SRV PROV QUAL NONPHYS HLTH CARE PRO TO EST PAT,PARENT,GUARD NOT ORIG REL ASSESS & MGT SRV PROV W/IN PREV 7 DAYS NOR LEAD ASSESS & MGT SRV/PX W/IN NXT 24 HR/SOON APT;5-10 MIN MED DIS [facility] MANUAL THERAPY TECHNIQUES (EG, MOBILIZATION/ MANIPULATION, MANUAL LYMPHATIC DRAINAGE, MANUAL TRACTION), 1 OR MORE REGIONS, EACH 15 MINUTES [facility] MANUAL THERAPY TECHNIQUES (EG, MOBILIZATION/ MANIPULATION, MANUAL LYMPHATIC DRAINAGE, MANUAL TRACTION), 1 OR MORE REGIONS, EACH 15 MINUTES [facility] PHYSICAL THERAPY RE-EVALUATION [facility] APPLICATION OF A MODALITY TO 1 OR MORE AREAS; ULTRASOUND, EACH 15 MINUTES [facility] APPLICATION OF A MODALITY TO 1 OR MORE AREAS; ULTRASOUND, EACH 15 MINUTES [facility] APPLICATION OF A MODALITY TO 1 OR MORE AREAS; ULTRASOUND, EACH 15 MINUTES [facility] APPLICATION OF A MODALITY TO 1 OR MORE AREAS; ULTRASOUND, EACH 15 MINUTES [facility] ARM PAD, REPLACEMENT ONLY, EACH [facility] ELECTROCARDIOGRAM, ROUTINE ECG WITH AT LEAST 12 LEADS; INTERPRETATION AND REPORT ONLY [facility] ELECTROCARDIOGRAM, ROUTINE ECG WITH AT LEAST 12 LEADS; WITH INTERPRETATION AND REPORT [facility] THERAPEUTIC PROCEDURE, 1 OR MORE AREAS, EACH 15 MINUTES; THERAPEUTIC EXERCISES TO DEVELOP STRENGTH AND ENDURANCE, RANGE OF MOTION AND FLEXIBILITY [facility] Non-Physician Phone Call To Patient/Provider Brief (5-10min) Non-Physician Phone Call To Patient/Provider Brief (5-10min) [phone] LANDEN CURRAN [facility] Non-Physician Phone Call To Patient/Provider Brief (5-10min) Non-Physician Phone Call To Patient/Provider Brief (5-10min) [phone] YVETTE QUINONEZ [facility] Non-Physician Phone Call To Patient/Provider Brief (5-10min) Non-Physician Phone Call To Patient/Provider Brief (5-10min) [phone] KAIA CISNEROS [facility] Non-Physician Phone Call To Patient/Provider Brief (5-10min) Non-Physician Phone Call To Patient/Provider Brief (5-10min) [phone] PETER SCHMIDT [facility] Non-Physician Phone Call To Patient/Provider Brief (5-10min) Non-Physician Phone Call To Patient/Provider Brief (5-10min) [phone] KAIA CISNEROS Non-Physician Phone Call To Patient/Provider Brief (5-10min) Non-Physician Phone Call To Patient/Provider Brief (5-10min) [phone] PETER SCHMIDT [employer] Fitting Monofocals (Not For Aphakia) [employer] Monofocals (Not For Aphakia) [phone] REMY AHN Determination Of Refractive State Determination Of Refractive State [phone] REMY AHN Ophthalmological New Patient Start Comprehensive Care Ophthalmological New Patient Start Comprehensive Care [phone] REM[facility] Non-Physician Phone Call To Patient/Provider Brief (5-10min) Non-Physician Phone Call To Patient/Provider Brief (5-10min) [phone] PETER SCHMIDT Non-Physician Phone Call To Patient/Provider Brief (5-10min) Non-Physician Phone Call To Patient/Provider Brief (5-10min) [phone] PETER SCHMIDT Non-Physician Phone Call To Patient/Provider Brief (5-10min) Non-Physician Phone Call To Patient/Provider Brief (5-10min) [phone] PETER SCHMIDT Non-Physician Phone Call To Patient/Provider Brief (5-10min) Non-Physician Phone Call To Patient/Provider Brief (5-10min) [phone] PETER SCHMIDT Non-Physician Phone Call To Patient/Provider Brief (5-10min) Non-Physician Phone Call To Patient/Provider Brief (5-10min) [phone] PETER SCHMIDT Non-Physician Phone Call To Patient/Provider Brief (5-10min) Non-Physician Phone Call To Patient/Provider Brief (5-10min) [phone] YVETTE QUINONEZ [facility] Non-Physician Phone Call To Patient/Provider Brief (5-10min) Non-Physician Phone Call To Patient/Provider Brief (5-10min) [phone] PETER SCHMIDT [facility] Non-Physician Phone Call To Patient/Provider Brief (5-10min) Non-Physician Phone Call To Patient/Provider Brief (5-10min) [phone] PETER SCHMIDT Non-Physician Phone Call To Patient/Provider Brief (5-10min) Non-Physician Phone Call To Patient/Provider Brief (5-10min) [phone] PETER SCHMIDT Non-Physician Phone Call To Patient/Provider Brief (5-10min) Non-Physician Phone Call To Patient/Provider Brief (5-10min) [phone] PETER SCHMIDT Non-Physician Phone Call To Patient/Provider Brief (5-10min) Non-Physician Phone Call To Patient/Provider Brief (5-10min) [phone] PETER SCHMIDT Physical Therapy Mobilization Joint Physical Therapy Mobilization Joint [phone] NILE NETTLES Physical Medicine Physical Therapy Evaluation Physical Medicine Physical Therapy Evaluation [phone] NILE NETTLES [facility] Physical Therapy Mobilization Joint Physical Therapy Mobilization Joint [phone] MESHA HYLTON Physical Medicine Physical Therapy Evaluation Physical Medicine Physical Therapy Evaluation 35999 011 MESHA HYLTON Physical Medicine Physical Therapy Re-Evaluation Physical Medicine Physical Therapy Re-Evaluation 81325 011 MESHA HYLTON Modalities Ultrasound Modalities Ultrasound 53173 011 TAVON ENCISO Modalities Ultrasound Modalities Ultrasound 10577 011 JOSE JEFFERS [facility] Modalities Ultrasound Modalities Ultrasound 39921 011 IRMA LOUIE [facility] Modalities Ultrasound Modalities Ultrasound 69400 011 MESHA HYLTON Physical Therapy: ___ Se ion Segments, 15 Minutes Each Physical Therapy: ___ Session Segments, 15 Minutes Each 37254 011 MESHA HYLTON Physical Medicine Physical Therapy Evaluation Physical Medicine Physical Therapy Evaluation 24155 011 MESHA HYLTON Arm pad, each 010 TAVON ENCISO ECG Interpretation And Report Only ECG Interpretation And Report Only [id number] 11/15/2 010 ROSALVANONA [facility] Electrocardiogram Electrocardiogram 36996 01/18 010 IFEANYI AHN [facility] Physical Therapy: ___ Se ion Segments, 15 Minutes Each Physical Therapy: ___ Session Segments, 15 Minutes Each 24340 010 MESHA HYLTON Physical Medicine Physical Therapy Evaluation Physical Medicine Physical Therapy Evaluation 62936 010 MESHA HYLTON [facility] Immunization Administration One Vaccine Immunization Administration One Vaccine 76961 009 FLORENCIA DANGELO Influenza Virus Vaccine Pandemic Formulation 009 FLORENCIA DANGELO Immunization Administration One Vaccine Immunization Administration One Vaccine 55950 009 JEMAL TILLEY Influenza Virus Vaccine Live Intranasal 009 JEMAL TILLEY A e ment & Intervention Blood Pre ure Measured 009 DARNELL WILCOX A e ment & Intervention Blood Pre ure Measured 009 DARNELL WILCOX Screening Test Of Visual Acuity, Quantitative, Bilateral Screening Test Of Visual Acuity, Quantitative, Bilateral 46673 009 JASSI CAMACHO [facility] Hearing Aid Check - Binaural Hearing Aid Check - Binaural 81611 009 MESHA SORIANO [facility] Electroacoustic Evaluation For Hearing Aid Electroacoustic Evaluation For Hearing Aid 57150 009 MESHA SORIANO Immunization Admin By Intranasal / Oral Route One Vaccine Immunization Admin By Intranasal / Oral Route One Vaccine 45182 008 DALE JONES Influenza Virus Vaccine Live Intranasal 008 DALE JONES [facility] Tdap Vaccine Tdap Vaccine 17084 008 CHARU ROBERSON [facility] Immunization Administration One Vaccine Immunization Administration One Vaccine 34263 008 CHARU ROBERSON [facility] Acoustic Reflex Testing 008 MESHA SORIANO Acoustic Reflex Decay Test Acoustic Reflex Decay Test 26316 008 MESHA SORIANO Tympanometry Tympanometry 27416 008 MESHA SORIANO [facility] Comprehensive Audiometry Comprehensive Audiometry 84661 008 MSEHA SORIANO [facility] Influenza Split Virus Vaccine Age 3+ Years Intramuscular 007 ADILSON ROBIN Immunization Administration One Vaccine Immunization Administration One Vaccine 42070 007 ADILSON ROBIN Destruction Of Benign Lesion By Any Method One Lesion 007 MACIE RAMIREZ Minh Destruction Of Benign Lesion By Any Method One Lesion 007 MACIE RAMIREZ [facility] Threshold Audiogram (Pure Tone) Threshold Audiogram (Pure Tone) 59203 007 SRINI OLIVARES [facility] Skin Test Anergy Tuberculin Intradermal Skin Test Anergy Tuberculin Intradermal 25066 007 IFEANYI MALDONADO [facility] Immunization Administration One Vaccine Immunization Administration One Vaccine 71751 006 MYLES GARZA [facility] Typhoid Vaccine Vi Capsular Polysaccharide, For Intramus Use Typhoid Vaccine Vi Capsular Polysaccharide, For Intramus Use 93221 006 MYLES GARZA [facility] Skin Test Anergy Tuberculin Intradermal Skin Test Anergy Tuberculin Intradermal 20027 006 MYLES GARZA [facility] Removal Of Ocular Foreign Body From Conjunctiva, Embedded Removal Of Ocular Foreign Body From Conjunctiva, Embedded 18351 006 GALO ECHOLS [facility] Postoperative Visit, Without Charge Postoperative Visit, Without Charge 02386 006 FANTASMA BECK [facility] Social History Combined list of available smoking, tobacco, and other social history from Department of Defense and Veterans Affairs facilities. Social History Type Response Date Comment Sour e This section is an empty social history section. DoD Assessment and Plan Combined list of future care activities from Department of Defense and Veterans Affairs facilities (e.g., assessment and plan notes, appointments, orders, and referrals). Additional future care activities may be listed in the Plan of Care section. Result Assessment and Plan Date Source Assessment and Plan No data available for this section 07/09/2024 Ambulatory Pharmacy Functional Status Combined list of recent functional and cognitive assessments recorded at [facility] Defense and [facility] Affairs (VA).VA Functional [place] Measurement (FIM) Scale: 1 = Total Assistance (Subject = 0% +), 2 = Maximal Assistance (Subject = 25% +), 3 = Moderate Assistance (Subject = 50% +), 4 = Minimal Assistance (Subject = 75% +), 5 = Supervision, 6 = Modified [place] (Device), 7 = Complete [place] (Timely, Safely). Assessment Date/Time Source Assessment Type Assessment Skill Assessment Score Assessment Details No data available for this section
--- OUTSIDE RECORDS SUMMARY | 2024-07-09 11:57 | XMS_ITS | Clinical Summary ---
Author Organization [facility] Address [address] [place] [address] Care Team Providers Care Wool Mixer Name Role Phone Shakira Calvin MD Primary Care Provider [phone] Source Comments [facility],non-owned Affiliates and Associated Physician Practices is amultiple site organization consisting of ambulatory clinics and hospital sitesin [place], [place], [place] and [place]. This disclosure is being madepursuant to the Care Everywhere program and may not contain all information available regarding this patient. Last updated 17.[facility] [employer] Social History Tobacco Use Types Packs/Day Years Used Date Smoking Tobacco: Never Assessed Sex and Gender Information Value Date Recorded Sex Assigned at Not on file Legal Sex Male 1:03 PM CDT Gender Identity Not on file Sexual Orientation Not on file Plan of Treatment Health Maintenance Due Date Last Done Comments COLOGUARD (AGES 45-75) - COLON CA SCREENING 1968 COLON MONITORING 1968 COLONOSCOPY - COLON CA SCREENING 1968 CT COLONOGRAPHY - COLON CA SCREENING 1968 Colorectal Cancer Screening 1968 FIT - COLON CA SCREENING 1968 FLEX SIG - COLON CA SCREENING 1968 LIPID TESTING 1968 HIV SCREENING 09/30/1983 HEPATITIS C SCREENING 09/25/1986 DTAP/TDAP/TD VACCINES (1 - Tdap) 09/30/1987 HEPATITIS B VACCINE (1 of 3 - 19+ 3-dose series) 09/30/1987 PNEUMOCOCCAL VACCINE 50+ (1 of 1 - PCV) 2018 ZOSTER VACCINE (1 of 2) 2018 COVID-19 VACCINE (3 - 2024-25 season) 2023 06/19/2020, 05/23/2020 DEPRESSION SCREENING 03/19/2024 INFLUENZA VACCINE (Season Ended) 2024 02/18/2021, 03/07/2007, 03/01/2006, Additional history exists HIB VACCINE Aged Out No longer eligi ble based on patient's age to complete this topic HPV VACCINE Aged Out No longer eligi ble based on patient's age to complete this topic MENINGOCOCCAL (Group B) VACCINE SHARED DECISION-MAKING Aged Out No longer eligible based on patient's age to complete this topic MENINGOCOCCAL GROUPS A/C/Y/W VACCINE Aged Out No longer eligible based on patient's age to complete this topic Insurance Care Teams Wool Mixer Relationship Specialty Start Date End Date Shakira Calvin MD [address] [place] [address] [address] [place] [address] PCP - General Family Medicine 04/25/23
--- OUTSIDE RECORDS SUMMARY | 2024-07-09 11:58 | XMS_ITS | Referral Summary ---
Author Organization [facility] [address] [place] [phone] Care Team Providers Care Multimedia Engineer Name Role Phone Shakira Calvin MD Primary Care Provider [phone] Allergies No known active allergies Medications No known medications Active Problems Problem Noted Date Diagnosed Date Flank pain 06/30/2020 Vesicoureteric reflux 06/30/2020 Social History Tobacco Use Types Packs/Day Years Used Date Smoking Tobacco: Never Assessed Sex and Gender Information Value Date Recorded Sex Assigned at Not on file 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 Gender Identity Not on file Sexual Orientation Not on file Last Filed Vital Signs Vital Sign Reading Time Taken Comments Blood Pressure 123/85 06/30/2020 2:19 PM CDT Pulse 66 06/30/2020 2:19 PM CDT Temperature 36.7 C (98.1 F) 06/30/2020 2:19 PM CDT Respiratory Rate - - Oxygen Saturation - - Inhaled Oxygen Concentration - - Weight 88.5 kg (195 lb) 06/30/2020 2:19 PM CDT Height 170.2 cm (5' 7 ) 06/30/2020 2:19 PM CDT Body Mass Index 30.54 06/30/2020 2:19 PM CDT Plan of Treatment Not [place] [address] [facility] [address] [facility] Care Teams Multimedia Engineer Relationship Specialty Start Date End Date Shakira Calvin MD [address] [place] [address] [place] [address] PCP - General Family Medicine 06/07/20
--- OUTSIDE RECORDS SUMMARY | 2024-07-09 11:58 | XMS_ITS | Clinical Summary ---
Author Organization [facility] Physician Of [facility] [address] [place] [phone] Care Team Providers Care Study Director Name Role Phone Shakira Clavin MD Primary Care Provider [phone] Allergies No known active allergies Medications No known medications Active Problems Problem Noted Date Diagnosed Date Flank pain 06/30/2020 Vesicoureteric reflux 06/30/2020 Surgical History Surgery Date Site/Laterality Comments VASECTOMY Surgery Vas Deferens Vasectomy - 1999 (Added by TW Conv) ELBOW SURGERY Elbow Surgery - cubital surgery Left 11/2010 (Added by TW Conv) Family History Medical History Relation Name Comments Hypertension Father Hypertension - (Added by TW Conv) Breast cancer Other Breast Cancer - (Added by TW Conv) Kidney disease Other Renal Disease - (Added by TW Conv) Lung cancer Other Adenocarcinoma Of The Lung - (Added by TW Conv) Relation Name Status Comments Father Other Social History Tobacco Use Types Packs/Day Years Used Date Smoking Tobacco: Never Assessed Sex and Gender Information Value Date Recorded Sex Assigned at Not on file 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 Gender Identity Not on file Sexual Orientation Not on file Obstetrics History Last Filed Vital Signs Vital Sign Reading [...] of Treatment Not on [place] [address] [facility] CLAIM[facility] Member Subscriber Plan / Payer (Ef fective 2014-Present) Name:Peter Campuzano Relation to Subscriber:Self Name:Peter Campuzano Payer ID:[id number] (NAIC) Group ID:Not on file Type: Address: [place] [id number] [place] [address] [facility] [place] [address] Care Teams Study Director Relationship Specialty Start Date End Date Shakira Calvin MD [address] [place] [address] [place] [address] PCP - General Family Medicine 06/07/20
--- OUTSIDE RECORDS SUMMARY | 2024-07-09 11:58 | XMS_ITS | Clinical Summary ---
Author Organization [facility] Address [address] [place] [address] Care Team Providers Care Mill Recorder Name Role Phone Unavailable Primary Care Provider Unavailabl e Social History Tobacco Use Types Packs/Day Years Used Date Smoking Tobacco: Never Assessed Sex and Gender Information Value Date Recorded Sex Assigned at Not on file Legal Sex Male 9:41 PM CDT Gender Identity Not on file Sexual Orientation Not on file Plan of Treatment Health Maintenance Due Date Last Done Comments Colorectal Cancer Screening Colonoscopy (10 Years) 1968 Annual Physical 09/30/1971 Hepatitis C 1986 DTaP, Tdap and Td Vaccines ( 1 - Tdap) 09/30/1987 Hepatitis B Vaccines (1 of 3 - 19+ 3-dose series) 09/30/1987 Pneumococcal Vaccine: 50+ Ye ars (1 of 1 - PCV) 2018 Zoster Vaccines (1 of 2) 2018 COVID-19 Vaccine (2023-2 5 season) 2023 Meningococcal B Vaccine Aged Out No l onger eligible based on patient's age to complete this topic Meningococcal Vaccine Aged Out No bryan hernandez eligible based on patient's age to complete this topic RSV Immunizations Under 20 Months Aged Out No longer eligible based on patient's age to complete this topic
[2024-07-09 20:01] LABS: Basophils Percent Auto 0.6 % (0.2-1.2); Eosinophils Absolute Auto 0.2 K/mm3 (0-0.3); Eosinophils Percent Auto 2.2 % (0-4.4); Hematocrit 48.9 % (42.0-52.0); Immature Granulocyte Absolute 0.01 K/mm3 (0.00-0.031); Immature Granulocyte Percent A 0.1 % (0-0.5); Lymphocytes Absolute Auto 1.86 K/mm3 (0.9-3.2); Lymphocytes Percent Auto 27.2 % (18.3-44.2); Mean Corpuscular HGB Conc 32.7 g/dl (32-36); Mean Corpuscular Hemoglobin 29.4 pg (26-34); Mean Corpuscular Volume 89.7 fl (80-100); Mean Platelet Volume 10.1 fl (7.4-10.4); Monocytes Absolute Auto 0.6 K/mm3 (0.1-0.6); Monocytes Percent Auto 8.8 % (2.6-8.5); Neutrophils Absolute Auto 4.2 K/mm3 (1.3-6.7); Neutrophils Percent Auto 61.1 % (45.5-73.1); Platelet Count Result 260 k/mm3 (150-375); Red Blood Count 5.45 M/mm3 (4.6-6.20); Red Cell Distribution Width 12.8 % (11.5-14.5); White Blood Count 6.9 K/mm3 (4.5-10.0)
[2024-07-09 20:47] LABS: Alanine Aminotransferase 52 U/L (6-50); Albumin Level 4.6 g/dL (3.5-5.1); Alkaline Phosphatase 69 U/L (38-126); Anion Gap 9 mmol/L (4-12); Aspartate Amino Transferase 57 U/L (17-59); Bilirubin,Total 0.6 mg/dL (0.2-1.3); Blood Urea Nitrogen 14 mg/dL (9-20); Calcium 9.4 mg/dL (8.4-10.2); Carbon Dioxide 28 mmol/L (22-30); Chloride 101 mmol/L (98-107); Cholesterol 239 mg/dL (0-200); Estimated Glomerular Filt Rate > 60; Glucose 80 mg/dL (65-110); HDL Direct 34 mg/dL; Potassium 4.5 mmol/L (3.4-5.0); Sodium 138 mmol/L (137-145); Triglycerides 178 mg/dL (<150)
[2024-07-09 20:59] LABS: LDL Cholesterol Direct 156 mg/dL
[2024-07-09 21:07] LABS: Vitamin D 25 Hydroxy 37.6 ng/mL
[2024-07-09 21:16] LABS: Prostate Specific Antigen 1.2 ng/mL (< OR = 4.0)
[2024-07-09 21:54] LABS: Hemoglobin A1C 5.2 % (<5.7)
== END 2024-07-09 10:24 | disposition home or self-care (01) ==
LOC: ANHGOSHLAB 10:24
PROVIDERS: PCP Family Medicine; Visit Provider Family Medicine
DX: E53.8 Deficiency of other specified B group vitamins (principal); I10 Essential (primary) hypertension; Z00.00 Encounter for general adult medical examination without abnormal findings; E78.5 Hyperlipidemia, unspecified; Z12.5 Encounter for screening for malignant neoplasm of prostate; G43.109 Migraine with aura, not intractable, without status migrainosus; G47.30 Sleep apnea, unspecified; E55.9 Vitamin D deficiency, unspecified; R73.9 Hyperglycemia, unspecified
CPT/HCPCS: 36415; 80053; 80061; 82306; 82607; 83036; 84153; 84443; 85025; G0103

== ENCOUNTER 2024-07-17 15:46 | Emergency (ER) | payer OTHER, SELFPAY ==
--- NOTE | 2024-07-17 15:50 | ED.GENADULT ---
HPI - General Adult General Chief complaint: Unspecified Stated complaint: Exhaustion Time Seen by Provider: 07/17/24 15:57 Source: patient, RN notes reviewed and old records reviewed Mode of arrival: ambulatory Limitations: no limitations History of Present Illness HPI narrative: 53-year-old male presents to the [facility] with extreme fatigue. Patient has been using zebound for weight loss. States that symptoms have been going on for 1-2 weeks. Has lost a ?substantial amount of weight. ? Patient also reports that his diet has been lacking. Does not eat very much. Has gone a couple of days of not eating anything at all. Denies any abdominal pain, chest pain. Denies any fevers. No URI symptoms Related Data Allergies Allergy/AdvReac Type Severity Reaction Status Date / Time celecoxib Allergy Unknown Urticaria Verified 07/17/24 15:55 Review of Systems Review of Systems: All systems reviewed & are unremarkable except as noted in HPI and below Constitutional: Constitutional: Reports as per HPI and Reports lethargy ENT: Reports system reviewed and no additional complaints, except as documented Cardiovascular: Cardiovascular: Reports no additional cardiovascular complaints, Denies chest pain and Denies dyspnea Respiratory: Respiratory: Reports no additional respiratory complaints, Denies chest congestion, Denies cough and Denies dyspnea Musculoskeletal: Musculoskeletal: Reports no additional musculoskeletal complaints Integumentary/Breasts: Skin/Breast: Reports system reviewed and no additional complaints, except as docu PMFSH Past Medical History Medical History Dyslipidemia Seasonal allergic rhinitis Insomnia Ocular migraine Cubital tunnel syndrome, bilateral Bilateral carpal tunnel syndrome GERD (gastroesophageal reflux disease) Sleep apnea Pneumonia Surgical History Surgical History History of arthroscopic surgery of shoulder left(2018) and right(2015) for impingement syndrome Status post trigger finger release Bilateral, 2014 and 2015 S/P cubital tunnel release Bilateral, 2012 and 2013 History of bilateral carpal tunnel release 2009, 2012 H/O vasectomy 2006 H/O umbilical hernia repair 2011 Hx of tonsillectomy As a child Family History Family History Father Hypertension Mother Family history of malignant neoplasm of breast in first degree relative Other Cerebrovascular accident Family history of arthritis Social History Social History Social History: Mr. Campuzano lives at home with his , Iona, his two daughters and a grandchild. He reports drinking about 1 drink of alcohol per week. Never smoker, denies other substance use.designates his , Iona Campuzano, as his surrogate decision-maker and is full code status. Caffeine-daily Smoking status: Never smoker Second hand tobacco smoke exposure: No Alcohol intake: current Drinks per week: 1 Substance use: never Substance use type: does not use Do You Feel Safe in your Home?: Yes Lack of Transportation: No Lack of Food: Never True Current Housing: I Have Housing Concerned About Future Housing: No Difficulty Paying Gas/Electric Bills: No Difficulty Paying for Meds: No Currently Unemployed: No Education: Bachelor's Degree Difficulty w/ Childcare or Family Care: No Living arrangements: with family Occupation/Education: occupation Gender identity (if verbalized by the patient): Male Sexual Orientation (if Verbalized by the Patient): Straight or Heterosexual Spiritual care concerns: No Agree to blood products: Yes Comments At the time of my signature, I reviewed and agree with the nursing past medical, surgical, social, and family history. There is no relevant family history pertinent to the patient complaint. Exam Const: General: cooperative, healthy appearing, comfortable, no acute distress, well developed, alert and well nourished Nutritional Appearance: well nourished Orientation/consciousness: patient oriented x3 Limitations: no limitations HENMT: Head: normal to inspection Eyes: General: appearance normal, both eyes and all related structures Alignment and Position: alignment normal Neck: Neck: normal visual inspection, full ROM, no lymphadenopathy and no meningeal signs Chest: Chest palpation & inspection: normal inspection of the chest Resp: Effort & Inspection: normal respiratory effort and able to speak in complete sentences Auscultation: clear to auscultation bilaterally, no crackles, no rales, no rhonchi and no wheezes Cardio: Rate: regular rate GI: GI Palp: No abdominal tenderness Skin: General skin exam: normal color and no rashes or lesions noted Neuro: General: patient oriented x3, gait normal, moves all extremities and no meningeal signs Cognition (Neuro): normal cognition Speech: normal speech Gait exam (Neuro): Normal gait present Extrem: General: normal to inspection, full ROM, capillary refill normal and normal gait Psych: Appearance: grossly normal and well kempt Mental Status: mental status grossly normal Speech and movement: Normal speech and movement present and Clear speech present Affect: normal affect Attitude: cooperative Course Course Level of Care: Express Care Visit Vital Signs Vital signs: Vital Signs Temperature 96.8 F L 07/17/24 15:55 Pulse Rate 69 07/17/24 15:55 Respiratory Rate 16 07/17/24 15:55 Blood Pressure 133/90 07/17/24 15:55 Pulse Oximetry 99 07/17/24 15:55 Temperature 96.8 F L 07/17/24 15:55 Pulse Rate 69 07/17/24 15:55 Respiratory Rate 16 07/17/24 15:55 Blood Pressure 133/90 07/17/24 15:55 Pulse Oximetry 99 07/17/24 15:55 Reviewed Medical Decision Making MDM Narrative Medical decision making narrative: Long discussion had with patient. He is sitting comfortably in exam room. Nontoxic, vitals stable. Discussed with patient that even though he does take the weight loss medication he still needs to consume enough calories for his body to properly work. Reviewed labs that were done July 09, no acute findings noted on those labs. Discussed with patient he may need to see a dietary counselor for evaluation, that he should be eating between 15-1800 calories a day, should be eating throughout the day, lacks calories can produce severe fatigue as well as other health issues. Patient is not wanting to stop weight loss medication. Discussed with patient that also stopping the weight loss medication and not modifying and diet can lead to significant weight gain. Patient encouraged to follow-up with primary care provider as soon as possible for further evaluation Discharge instructions reviewed with patient, as well as provided in writing per nursing staff. The instructions also include specific and strict return/GO TO THE ER as well as f/u information. All questions have been answered, and the patient deny any further questions with discharge and discharge plan. Some parts of this dictation were generated by voice recognition software and may contain typographical and/or grammatical inaccuracies. Differential Diagnosis Differential Diagnosis: Medication side-effect Medical Records Medical records reviewed: Yes I reviewed the external patient's medical records. Vital Signs Vital Signs: Vital Signs Temperature 96.8 F L 05/01/25 15:55 Pulse Rate 69 07/17/24 15:55 Respiratory Rate 16 07/17/24 15:55 Blood Pressure 133/90 07/17/24 15:55 Pulse Oximetry 99 07/17/24 15:55 Temperature 96.8 F L 07/17/24 15:55 Pulse Rate 69 07/17/24 15:55 Respiratory Rate 16 07/17/24 15:55 Blood Pressure 133/90 07/17/24 15:55 Pulse Oximetry 99 07/17/24 15:55 Reviewed Lab Data Lab results reviewed: Yes I reviewed the patient's lab results. Labs: Reviewed Critical Care Time Critical Care Time Critical Care Time: No Discharge Plan Discharge Clinical Impression: Fatigue Qualifiers: Fatigue type: other Qualified Code(s): R53.83 - Other fatigue Patient Disposition: Home Condition: Stable Instructions: Antibiotic Form, Fatigue (ED) Additional Instructions: Please call and speak with your primary care provider. Your fatigue is most likely from your weight loss medications as well as not taking in enough calories. Patient Language: Khmer Prescriptions: No Action tadalafil [Cialis] 20 mg tablet 20 mg PO DAILY PRN (Reason: sexual activity) Qty: 90 3RF Rx Instructions: administer approximately 30min before sexual activity; do not use more than 1 dose per 24hrs paroxetine HCl 10 mg tablet 10 mg PO DAILY PRN (Reason: premature ejaculation) Qty: 90 0RF oxybutynin chloride 5 mg tablet extended release 24hr 5 mg PO DAILY Qty: 90 0RF atorvastatin [Lipitor] 20 mg tablet 20 mg PO QHS Qty: 100 1RF Zepbound 10 mg/0.5 mL pen injector 10 mg subcut WEEKLY Qty: 2 0RF Follow-up/Referrals: Amada Reich MD [Physician] - 1 Week (express care follow up ) PHYSICIAN,GEOPHYSICAL SUPPORT SPECIALIST [Primary Care Provider] - Time of Disposition: 16:21
[2024-07-17 15:55] VITALS: BP 133/90; PULSE 69; RESP 16; TEMP 36; O2SAT 99
== END 2024-07-17 16:27 | disposition home or self-care (01) ==
PROVIDERS: Emergency Provider Nurse Practitioner
DX: R53.83 Other fatigue (principal); E78.5 Hyperlipidemia, unspecified; K21.9 Gastro-esophageal reflux disease without esophagitis; Z98.52 Vasectomy status
CPT/HCPCS: 99211; G0463

== ENCOUNTER 2024-10-01 12:33 | Outpatient (CLI) | payer OTHER, SELFPAY ==
--- OUTSIDE RECORDS SUMMARY | 2024-10-01 12:38 | XMS_ITS | Clinical Summary ---
Author Organization [facility] Address [address] [place] [address] Care Team Providers Care Armature Inspector Name Role Phone Shakira Calvin MD Primary Care Provider [phone] Source Comments [facility] [employer],non-owned Affiliates and Associated Physician Practices is amultiple site organization consisting of ambulatory clinics and hospital sitesin [place], [place] and [place]. This disclosure is being madepursuant to the Care Everywhere program and may not contain all information available regarding this patient. Last updated 17.[facility] [employer] Social History Tobacco Use Types Packs/Day Years [...] 06/19/2020, 05/23/2020 DEPRESSION SCREENING 03/19/2024 INFLUENZA VACCINE (#1) 2024 , 03/07/2007, 03/01/2006, Additional history exists HIB VACCINE [...] to complete this topic Insurance Care Teams Armature Inspector Relationship Specialty Start Date End Date Shakira Calvin MD [address] [place] [address] [address] [place] [address] PCP - General Family Medicine 04/25/23
--- OUTSIDE RECORDS SUMMARY | 2024-10-01 12:38 | XMS_ITS | Data Portability ---
Author Organization [facility], Main Office Address [address] [place] [id number] Assessment No assessment recorded. Plan of Treatment Reminders Order Date Submit Date Provider Last Modified By Organization Details Last Modified Time Details Appointments None recorded. Lab None recorded. 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 Surgeries None recorded. Imaging None recorded. Medication Orders fexofenadin e 180 mg tablet 2022 023 [facility], [address] [place] [address], [address], 3 10:02:55 acyclovir 400 mg tablet 2022 [email or web address] [place] [address] Pharmacy, [address] [place] [address], [address], 3 10:02:32 Wegovy 0.25 mg/0.5 mL subcutaneou s pen injector 2022 023 [id number], [address] [place], [place], [id number], 3 10:13:45 Patient TargetsNo targets recorded. Patient InstructionsNo instructions recorded. Reason for Referral Shirt Maker Referral for Pain in both feet Referring Physician: Shakira Calvin, Family Medicine, Encounter Date: 09/15/2022 Results Created Date Observation Date Name Description Value Unit Range Abnormal Flag Note LastModifiedBy Organization Detail LastModifiedTime 10/21/19 22 10/21/2021 PROST ATE-S PECIF IC AG prostate specific Ag 1.1 NG/mL 0.0-4. 0 Cj ECLIA metho dolog y. Accor ding to the Ameri can [employer]rolo gical Ass[employer] iatio n, Serum PSA shoul d decre ase and remai n at undet ectab le level s after radic al prost atect af[place]. The AUA defin es bioch emica l recur rence as an initi al PSA value 0.2 ng/mL or great er follo wed by a subse quent confi rmato ry PSA value 0.2 ng/mL or great er. Value s obtai charity with diffe rent assay metho ds or kits canno t be used inter zhu eably . Resul ts canno t be inter prete d as absol lyssa evide nce of the prese nce or absen ce of stacia an se. Not Available [facility] ([facility]) [address] [place], [address], 10/21/2021 08:19:52 10/21/19 22 10/21/2021 LIPID PANEL cholesterol, total 245 mg/dL 100-19 9 above high normal Not Available [facility] ([facility]) [address] [place], [address], 10/21/2021 08:19:52 10/21/19 22 10/21/2021 LIPID PANEL triglyceride s 366 mg/dL 0-149 above high normal Not Available [facility] ([facility]) [address] [place], [address], 10/21/2021 08:19:52 10/21/19 22 10/21/2021 LIPID PANEL HDL cholesterol 30 mg/dL >39 below low normal Not Available [facility] ([facility]) [address] [place], [address], 10/21/2021 08:19:52 10/21/19 22 10/21/2021 LIPID PANEL VLDL cholesterol sathya 68 mg/dL 5-40 above high normal Not Available [facility] ([facility]) [address] [facility] [place] [place], [address], 10/21/2021 08:19:52 10/21/19 22 10/21/2021 LIPID PANEL LDL chol calc ([facility]) 147 mg/dL 0-99 above high normal Not Available [facility] ([facility]) [address] [facility] [place] [place], [address], 10/21/2021 08:19:52 10/21/19 22 10/21/2021 LIPID PANEL comment: supervisor carton and can supply Not Available [facility] ([facility]) [address] [facility] [place] [place], [address], 10/21/2021 08:19:52 10/21/19 22 10/21/2021 COMP. METAB OLIC PANEL (14) glucose 89 mg/dL 65-99 Not Available [facility] ([facility]) [address] [facility] [place] [place], [address], 10/21/2021 08:19:51 10/21/19 22 10/21/2021 COMP. METAB OLIC PANEL (14) BUN 13 mg/dL 6-24 Not Available [facility] ([facility]) [address] [facility] [place] [place], [address], 10/21/2021 08:19:51 10/21/19 22 10/21/2021 COMP. METAB OLIC PANEL (14) creatinine 1.05 mg/dL 0.76-1 .27 Not Available [facility] ([facility]) [address] [facility] [place] [place], [address], 10/21/2021 08:19:51 10/21/19 22 10/21/2021 COMP. METAB OLIC PANEL (14) eGFR 85 mL/mi n/1.7 3 >59 Not Available [facility] ([facility]) [address] [place], [address], 10/21/2021 08:19:51 10/21/19 22 10/21/2021 COMP. METAB OLIC PANEL (14) BUN/creatini ne ratio 12 9-20 Not Available [facility] ([facility]) [address] [facility] [place] [place], [address], 10/21/2021 08:19:51 10/21/19 22 10/21/2021 COMP. METAB OLIC PANEL (14) sodium 139 mmol/ L 134-14 4 Not Available [facility] ([facility]) [address] [facility] [place] [place], [address], 10/21/2021 08:19:51 10/21/19 22 10/21/2021 COMP. METAB OLIC PANEL (14) potassium 4.5 mmol/ L 3.5-5. 2 Not Available [facility] ([facility]) [address] [place], [address], 10/21/2021 08:19:51 10/21/19 22 10/21/2021 COMP. METAB OLIC PANEL (14) chloride 99 mmol/ L 96-106 Not Available [facility] ([facility]) [address] [place], [address], 10/21/2021 08:19:51 10/21/19 22 10/21/2021 COMP. METAB OLIC PANEL (14) carbon dioxide, total 23 mmol/ L 20-29 Not Available [facility] ([facility]) [address] [place], [address], 10/21/2021 08:19:51 10/21/19 22 10/21/2021 COMP. METAB OLIC PANEL (14) calcium 9.7 mg/dL 8.7-10 .2 Not Available [facility] ([facility]) [address] [place], [address], 10/21/2021 08:19:51 10/21/19 22 10/21/2021 COMP. METAB OLIC PANEL (14) protein, total 7.6 g/dL 6.0-8. 5 Not Available [facility] ([facility]) [address] [facility] [place] [place], [address], 10/21/2021 08:19:51 10/21/19 22 10/21/2021 COMP. METAB OLIC PANEL (14) albumin 4.8 g/dL 3.8-4. 9 Not Available [facility] ([facility]) [address] [facility] [place] [place], [address], 10/21/2021 08:19:51 10/21/19 22 10/21/2021 COMP. METAB OLIC PANEL (14) globulin, total 2.8 g/dL 1.5-4. 5 Not Available [facility] ([facility]) [address] [facility], [place], [address], 10/21/2021 08:19:51 10/21/19 22 10/21/2021 COMP. METAB OLIC PANEL (14) A/G ratio 1.7 1.2-2. 2 Not Available [facility] ([facility]) [address] [facility] [place] [place], [address], 10/21/2021 08:19:51 10/21/19 22 10/21/2021 COMP. METAB OLIC PANEL (14) bilirubin, total 0.3 mg/dL 0.0-1. 2 Not Available [facility] ([facility]) [address] [facility] [place] [place], [address], 10/21/2021 08:19:51 10/21/19 22 10/21/2021 COMP. METAB OLIC PANEL (14) alkaline phosphatase 95 IU/L 44-121 Not Available [facility] ([facility]) [address] [facility] [place] [place], [address], 10/21/2021 08:19:51 10/21/19 22 10/21/2021 COMP. METAB OLIC PANEL (14) AST (SGOT) 23 IU/L 0-40 Not Available [facility] ([facility]) [address] [facility], [place], [address], 10/21/2021 08:19:51 10/21/19 22 10/21/2021 COMP. METAB OLIC PANEL (14) ALT (SGPT) 35 IU/L 0-44 Not Available [facility] ([facility]) [address] [facility], [place], [address], 10/21/2021 08:19:51 04/03/19 22 04/03/2021 imagi ng/di agnos tic resul t No observ ation record ed. [id number] [address], [place], [address], 05/17/2022 19:30:18 11/13/19 23 11/12/2022 XR, chest , 2 view No observ ation record ed. [address] [address], [place], [address], 11/13/2022 13:09:50 04/25/19 24 04/25/2023 CT, brain , w/o contr ast No observ ation record ed. [address] [address], [place], [address], 04/26/2023 11:53:05 Result Notes None recorded. Problems Name Problem SNOMED Code Status Onset Date Resolution Date Notes Provider Name and Address Organization Details Recorded Time Plantar fasciitis 864621871 Active 2017 Not Available [facility] 3 19:28:47 Hypertensi ve disorder 25058660 Active Not Available [facility] 3 19:28:47 Erectile dysfunctio n 902705853 Active 2021 Not Available [facility] 3 19:28:48 Herpes labialis 9446264 Active 2022 Shakira Calvin MD [address] [facility] [address], [place], [address] , [facility] [employer] [facility] 3 10:01:52 Allergic rhinitis 75712371 Active 2022 Shakira Calvin MD [address], [place], [address] , [facility] 3 10:02:43 Obese 682748988 Active 2022 Shakira Calvin MD [address], [place], [address] , [facility] [employer] [facility] 3 10:06:29 Pain in both feet 4948786077684 9102 Active 2022 Shakira Calvin MD [address], [place], [address] , [facility] 3 10:09:31 Lateral epicondyli tis 721868366 Active 2022 Shakira Calvin MD [address], [place], [address] , [facility] [employer] [facility] 3 10:10:31 Carpal tunnel syndrome 08808385 Active 2022 Shakira Calvin MD [address], [place], [address] , [facility] [employer] [facility] 3 10:12:02 Obesity 456500742 Active 2022 Shakira Calvin MD [address], [place], [address] , [facility] 3 10:12:24 Overweight 818334578 Active 2022 Shakira Calvin MD [address], [place], [address] , [facility] [employer] [facility] 3 17:13:37 Allergic reaction to bee sting 006996963 Active 2022 Shakira Calvin MD [address], [place], [address] , [facility] [employer] [facility] 3 16:54:14 Problem Notes None recorded. Medical Equipment None Reported. Allergies Allergen ID Allergen Name Allergen Category Reaction Reaction Severity Criticality Documentation Date Start Date Code Code System Note Provider Name and Address Organization Details Recorded Time 34666 Celebrex medicatio n Not available Not available Not available 05/17/2022 78363 7 RxNorm Not Available [facility] 3 19:30:16 Medications Name Sig Start Date Stop Date Status Note LastModified by Organization Details LastModified Time celecoxib 200 mg capsule 06/21 completed Not Available Not Available Not Available amoxicillin 500 mg capsule TAKE 1 CAPSULE BY MOUTH THREE TIMES DAILY UNTIL ALL TAKEN 04/05 completed Not Available Not Available Not Available prednisone 10 mg tablet 03/21 completed Not Available Not Available Not Available naproxen 375 mg tablet 10/14 completed Not Available Not Available Not Available azithromyci n 250 mg tablet 03/21 completed Not Available Not Available Not Available ibuprofen 800 mg tablet Take 1 tablet 3 times a day by oral route as needed. 10/14 completed Not Available Not Available Not Available benzonatate 200 mg capsule TAKE 1 CAPSULE BY MOUTH THREE TIMES DAILY NEEDED FOR COUGH active Not Available Not Available No t Available clomiphene citrate 50 mg tablet 06/21 completed Not Available Not Available Not Available hydrocodone 5 mg-acetamin ophen 325 mg tablet 06/21 completed Not Available Not Available Not Available ondansetron HCl 4 mg tablet 06/21 completed Not Available Not Available Not Available prednisone 20 mg tablet TAKE 2 TABLETS BY MOUTH EVERY DAY FOR 5 DAYS active Not Available Not Available No t Available Viagra 50 mg tablet take 1 tablet 1 hour before intercour se 05/11 completed Not Available Not Available Not Available pimecrolimu s 1 % topical cream APPLY A THIN LAYER TOPICALLY TO THE AFFECTED AREAS TWICE DAILY 10/14 completed Not Available Not Available Not Available clobetasol 0.05 % topical cream 10/14 completed Not Available Not Available Not Available phentermine 37.5 mg tablet TAKE 1 TABLET BY MOUTH EVERY DAY active Not Available Not Available No t Available fexofenadin e 180 mg tablet Take 1 tablet every day by oral route. 2022 active Not Available Not Available Not Avai lable acyclovir 400 mg tablet Take 2 tablets every 8 hours by oral route for 5 days. active Not Available Not Available No t Available sildenafil 100 mg tablet Take 1 tablet every day by oral route as needed. 10/14 completed Not Available Not Available Not Available ketorolac 10 mg tablet 06/21 completed Not Available Not Available Not Available Imitrex 50 mg tablet Take 1 tablet every day by oral route. 06/21 completed Not Available Not Available Not Available propranolol 10 mg tablet active Not Available Not Available Not Available benzonatate 100 mg capsule 06/21 completed Not Available Not Available Not Available hydrocodone 7.5 mg-acetamin ophen 325 mg tablet 06/21 completed Not Available Not Available Not Available erythromyci n 5 mg/gram (0.5 %) eye ointment active Not Available Not Available Not Available acyclovir 5 % topical ointment Apply 1 applicati on 4 times a day by topical route. 04/05 completed Not Available Not Available Not Available oseltamivir 75 mg capsule 10/06 completed Not Available Not Available Not Available mupirocin 2 % topical ointment APPLY A SMALL AMOUNT TO THE AFFECTED AREA BY TOPICAL ROUTE 3 TIMES PER DAY 05/01 completed Not Available Not Available Not Available epinephrine 0.3 mg/0.3 mL injection, auto-inject or use as directed active Not Available Not Available No t Available levofloxaci n 500 mg tablet Take 1 tablet every 24 hours by oral route. 06/21 completed Not Available Not Available Not Available methylpredn isolone 4 mg tablets in a dose pack FOLLOW PACKAGE DIRECTION S active Not Available Not Available No t Available albuterol sulfate HFA 90 mcg/actuati on aerosol inhaler active Not Available Not Available Not Available propranolol 20 mg tablet Take 1 tablet 3 times a day by oral route as needed. 10/14 completed Not Available Not Available Not Available fluticasone propionate 50 mcg/actuati on nasal spray,suspe nsion 2 sprays in each nostril daily active Not Available Not Available No t Available sertraline 50 mg tablet Take 1 tablet every day by oral route. active Not Available Not Available No t Available Ambien 10 mg tablet Take 1 tablet every day by oral route as needed. active Not Available Not Available No t Available diazepam 5 mg tablet 06/21 completed Not Available Not Available Not Available amoxicillin 875 mg-potassiu m clavulanate 125 mg tablet 03/21 completed Not Available Not Available Not Available Zovirax 5 % topical cream APPLY TO THE AFFECTED AREA(S) BY TOPICAL ROUTE 5 TIMES PER DAY active Not Available Not Available No t Available eszopiclone 2 mg tablet Take 1 tablet every day by oral route. 09/15 completed Not Available Not Available Not Available diclofenac 1 % topical gel APPLY 2 GRAMS TO THE AFFECTED AREA(S) BY TOPICAL ROUTE 4 TIMES PER DAY active Not Available Not Available No t Available Suprep Bowel Prep Kit 17.5 gram-3.13 gram-1.6 gram oral solution 03/21 completed Not Available Not Available Not Available Qsymia 3.75 mg-23 mg capsule, extended release Take 1 capsule every day by oral route for 14 days. 2022 active Not Available Not Available Not Adrian winter Flonase Allergy Relief 06/01 completed Not Available Not Available Not Available Eucrisa 2 % topical ointment APPLY A THIN LAYER TO THE AFFECTED AREA(S) BY TOPICAL ROUTE 2 TIMES PER DAY active Not Available Not Available No t Available Wegovy 0.25 mg/0.5 mL subcutaneou s pen injector Inject by subcutane ous route for 28 days. 2022 active Not Available Not Available Not Adrian winter Vitals Date Recorded Body mass index (BMI) Body height Oxygen saturation Oxygen saturation in Arterial blood by Pulse oximetry Heart rate Body temperature Body weight Systolic And Diastolic Provider Name and Address Organization Details Last Updated DateTime 3 31.6 kg/m2 170.18 cm 98 % 98 % 78 /min 98.2 [degF] 29359.6 6 g 130/80 mm[Hg] Not Available [facility] 3 19:28:32 Date Recorded Body mass index (BMI) Body height Oxygen saturation Oxygen saturation in Arterial blood by Pulse oximetry Heart rate Body temperature Body weight Systolic And Diastolic Provider Name and Address Organization Details Last Updated DateTime 2 31.8 kg/m2 170.18 cm 96 % 96 % 67 /min 97.4 [degF] 72299.2 5 g 150/90 mm[Hg] Not Available [facility] 3 19:28:32 Date Recorded Body height Body mass index (BMI) Body weight Body temperature Heart rate Oxygen saturation Oxygen saturation in Arterial blood by Pulse oximetry Systolic And Diastolic Provider Name and Address Organization Details Last Updated DateTime 3 170.18 cm 31.6 kg/m2 78283.6 6 g 97.3 [degF] 62 /min 98 % 98 % 140/90 mm[Hg] SOURAV Galvan [place] [facility] [place] [employer] [facility] 3 09:53:50 Date Recorded Body mass index (BMI) Body height Oxygen saturation Oxygen saturation in Arterial blood by Pulse oximetry Heart rate Body temperature Body weight Systolic And Diastolic Provider Name and Address Organization Details Last Updated DateTime 2 31.2 kg/m2 170.18 cm 98 % 98 % 61 /min 96.6 [degF] 43827.8 8 g 116/80 mm[Hg] Not Available [facility] 3 19:28:32 Social History None recorded. Functional Status None recorded. Mental Status None recorded. Family History Nothing Reported. Medical History No medical history recorded. Past Encounters Encounter ID Performer Location Encounter Start Date Encounter Closed Date Diagnosis/Indication Diagnosis SNOMED-CT Code Diagnosis ICD10 Code Diagnosis Note [id number] Shakira Calvin MD [facility] [place] [address] [place] [address] 04/05/2021 00:00:00 04/06/2021 06:25:34 [id number] Shakira Calvin MD [facility] [place] [facility] [place] [address] 10/14/2021 00:00:00 10/14/2021 12:22:54 [id number] Shakira Calvin MD [facility] [place] [address] [address] 03/31/2022 00:00:00 03/31/2022 10:30:23 [id number] Shakira Calvin MD [facility] [place] [address] [place] [address] 09/15/2022 09:45:59 09/15/2022 10:20:43 Herpes labialis 2035519 B00.1 Allergic rhinitis 206363 04 J30.9 Pain in both feet 462148 9035 7027058 M79.672 Lateral epicondylitis 20 6681302 M77.10 Carpal tom rachel syndrome 15995295 G56.03 Obesity 801447066 E66.9 Health Concerns Section Related Observation LastModified by Organization Detai ls LastModified Time None Recorded Concern Status LastModified by Organization Details LastModified Time None Recorded Advance Directives Directive None Recorded Payers Insurance Date Sequence Insurance Name Policy Number Policy Huston Covered Member ID Huston Member ID Guarantor Name 09/15/2022 1 [facility] () Peter Campuzano [id number] Peter Campuzano Notes Date Note Type Note Provider Name and Address Organization Details Recorded Time 09/15/2022 text/html Here today for weight gain. His feet are bothering him Needs to see arcade games mechanic. Wants new orthotics. Has been gaining weight. Wants to get on wegovy for this. He has lateral epicondylitis of both elbows and CTS surgery done on both hands, Would like to get splints for these Shakira Calvin MD [address] [place] [address], [address] [address], [place], [address], [facility] 09/15/2022 17:32:04
--- OUTSIDE RECORDS SUMMARY | 2024-10-01 12:39 | XMS_ITS | Clinical Summary ---
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
--- OUTSIDE RECORDS SUMMARY | 2024-10-01 12:39 | XMS_ITS | Referral Summary ---
Author Organization [facility] Physician Of [facility] [address] [place] [id number] Care Team Providers Care Defective Cigarette Slitter Name Role Phone Shakira Calvin MD Primary Care Provider [phone] Allergies No known active allergies Medications No known medications Active Problems Problem Noted Date Diagnosed Date Flank pain 06/30/2020 Vesicoureteric reflux 06/30/2020 Social History Tobacco Use Types Packs/Day Years Used Date Smoking Tobacco: Never Assessed Sex and Gender Information Value Date Recorded Sex Assigned at Not on file Legal Sex Male 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
--- OUTSIDE RECORDS SUMMARY | 2024-10-01 12:39 | XMS_ITS | Clinical Summary ---
Author Organization [facility] Address [address] [place] [id number] Care Team Providers Care [employer] Media Program Director Name Role Phone Unavailable Primary Care Provider [...]
[2024-10-01 18:57] LABS: Alanine Aminotransferase 35 U/L (6-50); Albumin Level 4.6 g/dL (3.5-5.1); Alkaline Phosphatase 75 U/L (38-126); Anion Gap 11 mmol/L (4-12); Aspartate Amino Transferase 43 U/L (17-59); Bilirubin,Total 0.4 mg/dL (0.2-1.3); Blood Urea Nitrogen 12 mg/dL (9-20); Calcium 9.5 mg/dL (8.4-10.2); Carbon Dioxide 24 mmol/L (22-30); Chloride 102 mmol/L (98-107); Cholesterol 242 mg/dL (0-200); Estimated Glomerular Filt Rate > 60; Glucose 96 mg/dL (65-110); HDL Direct 33 mg/dL; Potassium 3.7 mmol/L (3.4-5.0); Sodium 137 mmol/L (137-145); Total Protein 7.9 g/dL (6.3-8.2); Triglycerides 261 mg/dL (<150)
== END 2024-10-01 12:34 | disposition home or self-care (01) ==
LOC: ANHGOSHLAB 12:34
PROVIDERS: PCP Family Medicine; Visit Provider Family Medicine
DX: E78.5 Hyperlipidemia, unspecified (principal); I10 Essential (primary) hypertension; Z79.899 Other long term (current) drug therapy
CPT/HCPCS: 36415; 80053; 80061

== ENCOUNTER 2024-10-15 11:58 | Emergency (ER) | payer OTHER, SELFPAY ==
[2024-10-15 12:30] VITALS: BP 140/86; PULSE 66; RESP 16; TEMP 36.3; O2SAT 99
--- NOTE | 2024-10-15 12:40 | ED_ITS ---
HPI - Skin/Abscess/Foreign Bdy General Chief complaint: Skin/Abscess/Foreign Body Stated complaint: RASH Time Seen by Provider: 10/15/24 12:20 Source: patient and RN notes reviewed Mode of arrival: ambulatory Limitations: no limitations History of Present Illness HPI narrative: 54-year-old male presents Express Care complaining of poison nydia to his right arm for approximately 1 week. Patient said he was pulling weeds is guarded approximately 1 week ago when he developed a rash. Patient has not tried any [id number] to help with symptoms. She reports a pruritic rash that started on his left arm has spread to his trunk and to his lower legs. Patient reports he has been scratching his right arm a lot due to the itchiness. Developed increased redness, swelling, and some pain to his right arm. Patient denies any fevers, body aches, chills, chest pain, shortness of breath, swelling to lips, face, throat, difficulty clearing secretions, or any other symptoms. Related Data Allergies Allergy/AdvReac Type Severity Reaction Status Date / Time celecoxib Allergy Unknown Urticaria Verified 10/15/24 12:26 Review of Systems Review of Systems: CONSTITUTIONAL: Denies fever, chills, or sweats. EYES: Denies visual changes, redness, or discharge. ENT: Denies rhinorrhea, congestion, sore throat, or otalgia. CARDIOVASCULAR: Denies chest pain, palpitations, or edema. RESPIRATORY: Denies cough or dyspnea. GASTROINTESTINAL: Denies abdominal pain, nausea, vomiting, or diarrhea. GENITOURINARY: Denies dysuria or hematuria. SKIN: Positive for rash and itching. MUSCULOSKELETAL: Denies back pain, joint pain, or myalgia. NEUROLOGIC: Denies headache, numbness, or weakness. PSYCHIATRIC: Denies anxiety or depression. All other systems reviewed are negative, except as documented in HPI. [facility] Past Medical History Medical History Dyslipidemia Seasonal allergic rhinitis Insomnia Ocular migraine Cubital tunnel syndrome, bilateral Bilateral carpal tunnel syndrome GERD (gastroesophageal reflux disease) Sleep apnea Pneumonia Surgical History Surgical History History of arthroscopic surgery of shoulder left(2017) and right(2014) for impingement syndrome Status post trigger finger release Bilateral, 2014 and 2015 S/P cubital tunnel release Bilateral, 2012 and 2013 History of bilateral carpal tunnel release 2009, 2011 H/O vasectomy 2006 H/O umbilical hernia repair 2011 Hx of tonsillectomy As a child Family History Family History Father Hypertension Mother Family history of malignant neoplasm of breast in first degree relative Other Cerebrovascular accident Family history of arthritis Social History Social History Social History: Mr. Campuzano lives at home with his , Iona, his two daughters and a grandchild. He reports drinking about 1 drink of alcohol per week. Never smoker, denies other substance use.designates his , Iona Campuzano, as his surrogate decision-maker and is full code status. Caffeine-daily Smoking status: Never smoker Second hand tobacco smoke exposure: No Alcohol intake: current Drinks per week: 1 Substance use: never Substance use type: does not use Do You Feel Safe in your Home?: Yes Lack of Transportation: No Lack of Food: Never True Current Housing: I Have Housing Concerned About Future Housing: No Difficulty Paying Gas/Electric Bills: No Difficulty Paying for Meds: No Currently Unemployed: No Education: Bachelor's Degree Difficulty w/ Childcare or Family Care: No Living arrangements: with family Occupation/Education: occupation Gender identity (if verbalized by the patient): Male Sexual Orientation (if Verbalized by the Patient): Straight or Heterosexual Spiritual care concerns: No Agree to blood products: Yes Comments At the time of my signature, I reviewed and agree with the nursing past medical, surgical, social, and family history. There is no relevant family history pertinent to the patient complaint. Exam Narrative: GENERAL: This is a well-nourished, well-developed adult, in no apparent distress. They are non ill-appearing, nontoxic appearing. HEAD: normocephalic, atraumatic. EYES: Sclera clear/white. Conjunctiva normal. Vision is grossly intact. Extraocular movements intact EARS: External ears normal, Hearing grossly intact. NOSE: External nose normal . THROAT: Mucous membranes moist, NECK: Neck supple, CARDIOVASCULAR: Regular rate and rhythm RESPIRATORY: Respiratory rate normal, respiratory effort nonlabored, no respiratory distress SKIN: Erythematous papular vesicular rash scattered throughout the patient's right forearm, trunk, and scantly to the bilateral lower legs. Rash on right anterior lateral forearm is indurated with surrounding erythema, mild tenderness to palpation, and warm to touch. Exudate, no area of fluctuance. NEURO: awake, alert, and oriented to person, place and time. There were no obvious focal neurologic abnormalities. EXTREMITIES: No joint tenderness, effusion, or edema noted. Course Course Emergency Course: Portions of this record may have been created with voice recognition software Level of Care: Express Care Visit Vital Signs Vital signs: Reviewed MDM - Skin/Abscess/Foreign Bdy MDM Narrative Medical decision making narrative: Patient likely has poison nydia. Given the amount of scratching has been doing to his right forearm, with increased redness, mild pain, induration will go ahead and treat for secondary bacterial infection with cephalexin. Will also prescribe prednisone taper and a clobetasol cream to apply to the affected area. Rash primarily patient's right forearm and scantly on his trunk and lower extremities. Advised patient to not apply this cream to his face or genitals. Discussed physical exam findings. Advised supportive measures and signs/symptoms to go to the ER. Pt is appropriate for outpt treatment and f/u. Critical Care Time Critical Care Time Critical Care Time: No Discharge Plan Discharge Clinical Impression: Poison nydia Patient Disposition: Home Condition: Stable Instructions: Antibiotic Form, Poison Nydia (ED) Additional Instructions: Take the prednisone as directed. Take it in the morning and take it with food. Take cephalexin as directed. Use clobetasol cream as directed, apply only to the affected area. Do not apply to the face or genital region. You may use xrlb-pel-[id number] Tecnu soap as directed on the bottle to help remove the oils from poison nydia off your skin. You may use calamine lotion, camphor,, Benadryl cream as needed for itchiness symptoms. You may also take Zyrtec or Claritin as needed for allergy or itchiness symptoms. Follow-up PCP in 3-5 days. If you develop any worsening redness, swelling, discharge, fevers, breathing problems, or any other concerns please go to the ER immediately. Patient Language: Armenian Prescriptions: New prednisone 10 mg tablet See Taper PO DAILY Qty: 42 0RF Taper: Prednisone Taper from 60 mg;12 days 60 mg DAILY for 2 Days and 0 Hour 50 mg DAILY for 2 Days and 0 Hour 40 mg DAILY for 2 Days and 0 Hour 30 mg DAILY for 2 Days and 0 Hour 20 mg DAILY for 2 Days and 0 Hour 10 mg DAILY for 2 Days and 0 Hour clobetasol 0.05 % cream 1 applic topical BID 7 Days Qty: 30 0RF cephalexin 500 mg capsule 500 mg PO Q6H 5 Days Qty: 20 0RF No Action atorvastatin [Lipitor] 20 mg tablet 20 mg PO QHS Qty: 100 1RF Follow-up/Referrals: Amada Reich MD [Primary Care Provider] - Time of Disposition: 12:28
== END 2024-10-15 12:41 | disposition home or self-care (01) ==
PROVIDERS: PCP Family Medicine
DX: L23.7 Allergic contact dermatitis due to plants, except food (principal); E78.5 Hyperlipidemia, unspecified; K21.9 Gastro-esophageal reflux disease without esophagitis; Z98.52 Vasectomy status
CPT/HCPCS: 99213; G0463

== ENCOUNTER 2024-11-05 08:45 | Outpatient (CLI) | payer OTHER, SELFPAY ==
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
--- OUTSIDE RECORDS SUMMARY | 2024-11-05 08:51 | XMS_ITS | Clinical Summary ---
Author Organization [facility] Address [address] [facility] [address] Care Team Providers Care Measurement Department Chief Clerk Name Role Phone Shakira Calvin MD Primary Care Provider [phone] Source Comments [facility],non-owned Affiliates and Associated Physician Practices is amultiple site organization consisting of ambulatory clinics and hospital sitesin [place], [place], [place] and [place]. This disclosure is being madepursuant to the Care Everywhere program and may not contain all information available regarding this patient. Last updated 17.[facility] [employer] Social History Tobacco Use Types Packs/Day Years [...] to complete this topic Insurance Care Teams Measurement Department Chief Clerk Relationship Specialty Start Date End Date Shakira Calvin MD [address] [place] [address] [address] [place] [address] PCP - General Family Medicine 04/25/23
--- OUTSIDE RECORDS SUMMARY | 2024-11-05 08:52 | XMS_ITS | Clinical Summary ---
Author Organization [facility] [address] [place] [id number] Care Team Providers Care Parts Salesman Name Role Phone Shakira Calvin MD Primary Care Provider [phone] Allergies No known active allergies Medications No [...] on file Legal Sex Male 8:40 AM [employer]PER[employer] Gender Identity Not on file Sexual Orientation [...] of Treatment Not on [place] [address] [facility] [place] [address] [facility] [place] [address] Care Teams Parts Salesman Relationship Specialty Start Date End Date Shakira Calvin MD [address] [place] [address] [place] [address] PCP - General Family Medicine 06/07/20
--- OUTSIDE RECORDS SUMMARY | 2024-11-05 08:52 | XMS_ITS | Clinical Summary ---
Author Organization [facility] Address [address] [place] [address] Care Team Providers Care Police Communications Operator Name Role Phone Unavailable Primary Care Provider [...]
[2024-11-05 13:46] LABS: Thyroid Stimulating Hormone Reflex 1.970 uIU/mL (0.465-4.68)
[2024-11-05 14:38] LABS: Magnesium 2.5 mg/dL (1.6-2.3)
[2024-11-05 15:30] LABS: Vitamin B12 396.0 pg/mL (239-931)
[2024-11-12 21:07] LABS: Free Testosterone (Direct) 3.9 pg/mL (7.2-24.0)
== END 2024-11-05 08:46 | disposition home or self-care (01) ==
LOC: ANHGOSHLAB 08:46
PROVIDERS: PCP Family Medicine; Visit Provider Nurse Practitioner Family
DX: R41.3 Other amnesia (principal); E55.9 Vitamin D deficiency, unspecified
CPT/HCPCS: 36415; 82306; 82607; 83735; 84402; 84403; 84443

== ENCOUNTER 2025-01-12 13:24 | Outpatient (CLI) | payer OTHER, SELFPAY ==
--- OUTSIDE RECORDS SUMMARY | 2025-01-12 14:59 | XMS_ITS | Clinical Summary ---
Author Organization [facility] Address [address] [place] [address] Care Team Providers Care Filler Leaf Cutter Long Name Role Phone Unavailable Primary Care Provider [...] Vaccines (1 of 2) 2018 COVID-19 Vaccine (2024-2 6 season) 2024 Influenza Adult (#1) 2024 Hepatitis A Vaccines Aged Out No long er eligible based on patient's age to complete this topic Meningococcal B Vaccine Aged Out No l onger eligible based on patient's age to complete this topic Meningococcal Vaccine Aged Out No bryan hernandez eligible based on patient's age to complete this topic RSV Immunizations Under 20 Months Aged Out No longer eligible based on patient's age to complete this topic
--- OUTSIDE RECORDS SUMMARY | 2025-01-12 14:59 | XMS_ITS | Clinical Summary ---
Author Organization [facility] Address [address] [facility] [place] [address] Care Team Providers Care Channel Layer Name Role Phone Shakira Calvin MD Primary Care Provider [phone] Source Comments [facility],non-owned Affiliates and Associated Physician Practices is amultiple site organization consisting of ambulatory clinics and hospital sitesin [place], [place], [place] and [place]. This disclosure is being madepursuant to the Care Everywhere program and may not contain all information available regarding this patient. Last updated 17.[facility] Social History Tobacco Use Types Packs/Day Years [...] 2018 ZOSTER VACCINE (1 of 2) 2018 DEPRESSION SCREENING 03/19/2024 COVID-19 VACCINE (3 - 2024-26 season) 2024 06/19/2020, 05/23/2020 INFLUENZA VACCINE (#1) 2024 , 03/07/2007, 03/01/2006, [...] to complete this topic Insurance Care Teams Channel Layer Relationship Specialty Start Date End Date Shakira Calvin MD [address] [place] [address] [address] [place] [address] PCP - General Family Medicine 04/25/23
--- OUTSIDE RECORDS SUMMARY | 2025-01-12 14:59 | XMS_ITS | Data Portability ---
Author Organization [place] [facility] [employer], Main Office Address [address] [place] [id number] Assessment No assessment recorded. Plan of Treatment Reminders Order Date Submit Date Provider Last Modified By Organization Details Last Modified Time Details Appointments None recorded. Lab None recorded. Referral accounting manager controller referral 2022 023 [email or web address] 3 Shayy Houston DPM, [address] [place], [address], 3 09:35:53 Procedures None recorded. Surgeries None recorded. Imaging None recorded. Medication Orders fexofenadin e 180 mg tablet 2022 023 [facility], [address] [place] [address], [address], 3 10:02:55 acyclovir 400 mg tablet 2022 [email or web address] [place] [address] Pharmacy, [address] [place] [address], [address], 3 10:02:32 Wegovy 0.25 mg/0.5 mL subcutaneou s pen injector 2022 023 [id number], [address] [place], [place], [id number], 3 10:13:45 Patient TargetsNo targets recorded. Patient InstructionsNo instructions recorded. Reason for Referral Climbing Guide Referral for Pain in bilateral feet Referring Physician: Shakira Calvin, Family Medicine, [...] t be inter prete d as absol kiana evide nce of the prese nce or absen ce of stacia an se. Not Available [facility] ([facility]) [address] [place], [address], 10/21/2021 08:19:52 10/21/19 22 10/21/2021 LIPID PANEL cholesterol, total 245 mg/dL 100-19 9 above high normal Not Available [facility] ([facility]) [address] [place], [address], 10/21/2021 08:19:52 10/21/19 22 10/21/2021 LIPID PANEL triglyceride s 366 mg/dL 0-149 above high normal Not Available [facility] ([facility]) [address] [place], [address], 10/21/2021 08:19:52 10/21/19 22 10/21/2021 LIPID PANEL HDL cholesterol 30 mg/dL >39 below low normal Not Available [facility] ([facility]) [address] [place], [address], 10/21/2021 08:19:52 10/21/19 22 10/21/2021 LIPID PANEL VLDL cholesterol sathya 68 mg/dL 5-40 above high normal Not Available [facility] ([facility]) [address] [facility] [place], [address], 10/21/2021 08:19:52 10/21/19 22 10/21/2021 LIPID PANEL LDL chol calc ([facility]) 147 mg/dL 0-99 above high normal Not Available [facility] ([facility]) [address] [facility] [place], [address], 10/21/2021 08:19:52 10/21/19 22 10/21/2021 LIPID PANEL comment: hospice care consultant Not Available [facility] ([facility]) [address] [facility] [place], [address], 10/21/2021 08:19:52 10/21/19 22 10/21/2021 COMP. METAB OLIC PANEL (14) glucose 89 mg/dL 65-99 Not Available [facility] ([facility]) [address] [facility] [place], [address], 10/21/2021 08:19:51 10/21/19 22 10/21/2021 COMP. METAB OLIC PANEL (14) BUN 13 mg/dL 6-24 Not Available [facility] ([facility]) [address] [facility] [place], [address], 10/21/2021 08:19:51 10/21/19 22 10/21/2021 COMP. METAB OLIC PANEL (14) creatinine 1.05 mg/dL 0.76-1 .27 Not Available [facility] ([facility]) [address] [facility] [place], [address], 10/21/2021 08:19:51 10/21/19 22 10/21/2021 COMP. METAB OLIC PANEL (14) eGFR 85 mL/mi n/1.7 3 >59 Not Available [facility] ([facility]) [address] [place], [address], 10/21/2021 08:19:51 10/21/19 22 10/21/2021 COMP. METAB OLIC PANEL (14) BUN/creatini ne ratio 12 9-20 Not Available [facility] ([facility]) [address] [facility] [place], [address], 10/21/2021 08:19:51 10/21/19 22 10/21/2021 COMP. METAB OLIC PANEL (14) sodium 139 mmol/ L 134-14 4 Not Available [facility] ([facility]) [address] [facility] [place], [address], 10/21/2021 08:19:51 10/21/19 22 10/21/2021 COMP. METAB OLIC PANEL (14) potassium 4.5 mmol/ L 3.5-5. 2 Not Available [facility] ([facility]) [address] [place], [address], 10/21/2021 08:19:51 10/21/19 22 10/21/2021 COMP. METAB OLIC PANEL (14) chloride 99 mmol/ L 96-106 Not Available [facility] ([facility]) [address] [place], [address], 10/21/2021 08:19:51 10/21/19 22 10/21/2021 COMP. METAB OLIC PANEL (14) carbon dioxide, total 23 mmol/ L 20-29 Not Available [facility] ([facility]) [address] [place], [address], 10/21/2021 08:19:51 10/21/19 22 10/21/2021 COMP. METAB OLIC PANEL (14) calcium 9.7 mg/dL 8.7-10 .2 Not Available [facility] ([facility]) [address] [place], [address], 10/21/2021 08:19:51 10/21/19 22 10/21/2021 COMP. METAB OLIC PANEL (14) protein, total 7.6 g/dL 6.0-8. 5 Not Available [facility] ([facility]) [address] [facility] [place], [address], 10/21/2021 08:19:51 10/21/19 22 10/21/2021 COMP. METAB OLIC PANEL (14) albumin 4.8 g/dL 3.8-4. 9 Not Available [facility] ([facility]) [address] [facility] [place], [address], 10/21/2021 08:19:51 10/21/19 22 10/21/2021 COMP. METAB OLIC PANEL (14) globulin, total 2.8 g/dL 1.5-4. 5 Not Available [facility] ([facility]) [address] [facility], [place], [address], 10/21/2021 08:19:51 10/21/19 22 10/21/2021 COMP. METAB OLIC PANEL (14) A/G ratio 1.7 1.2-2. 2 Not Available [facility] ([facility]) [address] [facility] [place], [address], 10/21/2021 08:19:51 10/21/19 22 10/21/2021 COMP. METAB OLIC PANEL (14) bilirubin, total 0.3 mg/dL 0.0-1. 2 Not Available [facility] ([facility]) [address] [facility] [place], [address], 10/21/2021 08:19:51 10/21/19 22 10/21/2021 COMP. METAB OLIC PANEL (14) alkaline phosphatase 95 IU/L 44-121 Not Available [facility]) [address] [facility] [place], [address], 10/21/2021 08:19:51 10/21/19 22 10/21/2021 COMP. METAB OLIC PANEL (14) AST (SGOT) 23 IU/L 0-40 Not Available [facility] ([facility]) [address] [facility], [place], [address], 10/21/2021 08:19:51 10/21/19 22 10/21/2021 COMP. METAB OLIC PANEL (14) ALT (SGPT) 35 IU/L 0-44 Not Available [facility] ([facility]) [address] [facility], [place], [address], 10/21/2021 08:19:51 04/03/19 22 04/03/2021 imagi ng/di agnos tic resul t No observ ation record ed. [email or web address] [id number] [address], [place], [address], 05/17/2022 19:30:18 11/13/19 23 11/12/2022 XR, chest , 2 view No observ ation record ed. [address] [address], [place], [address], 11/13/2022 13:09:50 04/25/19 24 04/25/2023 CT, brain , w/o contr ast No observ ation record ed. [address] [address], [place], [address], 04/26/2023 11:53:05 Result Notes None recorded. Problems Name Problem SNOMED Code Status Onset Date Resolution Date Notes Provider Name and Address Organization Details Recorded Time Hypertensi ve disorder 15674164 Active Not Available [facility] 3 19:28:47 Plantar fasciitis 210327607 Active 2017 Not Available [employer] 3 19:28:47 Erectile dysfunctio n 345502603 Active 2021 Not Available [facility] 3 19:28:48 Herpes labialis 7269972 Active 2022 Shakira Calvin MD [address] [facility], [facility] [address], [place], [address] , [facility] 3 10:01:52 Allergic rhinitis 89738992 Active 2022 Shakira Calvin MD [address], [place], [address] , [facility] 3 10:02:43 Obese 099944255 Active 2022 Shakira Calvin MD [address], [place], [address] , [facility] [employer] [facility] 3 10:06:29 Pain in bilateral feet 3268624211156 9102 Active 2022 Shakira Calvin MD [address], [place], [address] , [facility] 3 10:09:31 Lateral epicondyli tis 491323481 Active 2022 Shakira Calvin MD [address], [place], [address] , [facility] [employer] [facility] 3 10:10:31 Carpal tunnel syndrome 09538023 Active 2022 Shakira Calvin MD [address], [place], [address] , [facility] [employer] [facility] 3 10:12:02 Obesity 734696546 Active 2022 Shakira aClvin MD [address], [place], [address] , [facility] 3 10:12:24 Overweight 745216246 Active 2022 Shakira Calvin MD [address], [place], [address] , [facility] 3 17:13:37 Allergic reaction to bee sting 469149416 Active 2022 Shakira Calvin MD [address], [place], [address] , [facility] [employer] [facility] 3 16:54:14 Problem Notes None recorded. Medical Equipment None Reported. Allergies Allergen ID Allergen Name Allergen Category Reaction Reaction Severity Criticality Documentation Date Start Date Code Code System Note Provider Name and Address Organization Details Recorded Time 69843 Celebrex medicatio n Not available Not available Not available 05/17/2022 14566 7 RxNorm Not Available [facility] 3 19:30:16 Medications Name Sig [...] % 98 % 78 /min 98.2 [degF] 78946.6 6 g 130/80 mm[Hg] Not Available [facility] 3 19:28:32 Date Recorded Body mass index (BMI) Body height Oxygen saturation Oxygen saturation in Arterial blood by Pulse oximetry Heart rate Body temperature Body weight Systolic And Diastolic Provider Name and Address Organization Details Last Updated DateTime 2 31.8 kg/m2 170.18 cm 96 % 96 % 67 /min 97.4 [degF] 81579.2 5 g 150/90 mm[Hg] Not Available [facility] 3 19:28:32 Date Recorded Body height Body mass index (BMI) Body weight Body temperature Heart rate Oxygen saturation Oxygen saturation in Arterial blood by Pulse oximetry Systolic And Diastolic Provider Name and Address Organization Details Last Updated DateTime 3 170.18 cm 31.6 kg/m2 59755.6 6 g 97.3 [degF] 62 /min 98 % 98 % 140/90 mm[Hg] SOURAV Gal[place] [facility] [place] [employer] [facility] 3 09:53:50 Date Recorded Body mass index (BMI) Body height Oxygen saturation Oxygen saturation in Arterial blood by Pulse oximetry Heart rate Body temperature Body weight Systolic And Diastolic Provider Name and Address Organization Details Last Updated DateTime 2 31.2 kg/m2 170.18 cm 98 % 98 % 61 /min 96.6 [degF] 71777.8 8 g 116/80 mm[Hg] Not Available [facility] 3 19:28:32 Social History None recorded. Functional Status None recorded. Mental Status None recorded. Family History Nothing Reported. Medical History No medical history recorded. Past Encounters Encounter ID Performer Location Encounter Start Date Encounter Closed Date Diagnosis/Indication Diagnosis SNOMED-CT Code Diagnosis ICD10 Code Diagnosis IMO Codes Diagnosis Note [id number] Shakira Calvin MD [facility] [place] [facility] [place] [address] 04/05/2021 00:00:00 04/06/2021 06:25:34 [id number] Shakira Calvin MD [facility] [place] [facility] [place] [address] 10/14/2021 00:00:00 10/14/2021 12:22:54 [id number] Shakira Calvin MD [facility] [place] [address] 03/31/2022 00:00:00 03/31/2022 10:30:23 [id number] Shakira Calvin MD [facility] [place] [facility] [place] [address] 09/15/2022 09:45:59 09/15/2022 10:20:43 Herpes labialis 9357156 B00.1 Allergic rhinitis 850566 04 J30.9 Pain in bi lateral feet 7630892519 1158082 M79.672 Lateral epicondylitis 20 3556688 M77.10 Carpal tom rachel syndrome 81742827 G56.03 Obesity 139893581 E66.9 Health Concerns Section Related Observation LastModified by Organization Detai ls LastModified Time None Recorded Concern Status LastModified by Organization Details LastModified Time None Recorded Advance Directives Directive None Recorded Payers Insurance Date Sequence Insurance Name Policy Number Policy Huston Covered Member ID Huston Member ID Guarantor Name 09/15/2022 1 [facility] Peter Campuzano [id number] Peter Campuzano Notes Date Note Type Note Provider Name and Address Organization Details Recorded Time 09/15/2022 text/html Here today for weight gain. His feet are bothering him Needs to see accounting manager controller. Wants new orthotics. Has been gaining weight. Wants to get on wegovy for this. He has lateral epicondylitis of both elbows and CTS surgery done on both hands, Would like to get splints for these Shakira Calvin MD [address] [place] [address] [address] [address], [place], [address], [place] [facility] 09/15/2022 17:32:04
--- OUTSIDE RECORDS SUMMARY | 2025-01-12 14:59 | XMS_ITS | Clinical Summary ---
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
[2025-01-14 23:07] LABS: Free Testosterone (Direct) 4.0 pg/mL (7.2-24.0)
== END 2025-01-12 13:25 | disposition home or self-care (01) ==
LOC: ANHGOSHLAB 13:24
PROVIDERS: PCP Family Medicine; Visit Provider Nurse Practitioner Family
DX: R79.89 Other specified abnormal findings of blood chemistry (principal)
CPT/HCPCS: 84402; 84403